=== PATIENT | female | born 1970 | race Caucasian/White ===

== ENCOUNTER 2016-12-31 05:12 | Inpatient (IN) | payer MEDICAID, MEDICARE ==
[2016-12-31] VITALS (8 sets, daily range): BP systolic 105–125; BP diastolic 57–102; PULSE 74–110; RESP 16–22; TEMP 97.9–98.3; O2SAT 94–99
[~2016-12-31] VITALS: Ht 165.1 cm; Wt 74.0 kg
[2016-12-31] MEDS ORDERED: XANA2TAB2 PO (05:24)
[2016-12-31] MEDS ORDERED: VENL75TA PO (05:24)
[2016-12-31] MEDS ORDERED: OXYC15TA PO (05:24)
[2016-12-31] MEDS ORDERED: ONDANSETRON HCL 4 MG/2 ML VIAL IV ONE (05:45)
[2016-12-31] MEDS ORDERED: SODIUM CHLOR 0.9% 1000 ML INJ 1,000 ML IV ONE ×2 (05:45→07:45)
[2016-12-31 06:04] LABS: AUTOMATED NEUTROPHIL # 14.2 TH/MM3 (1.8-7.7); BASOPHIL % 0.1 % (0.0-2.0); HEMATOCRIT 35.4 % (35.0-46.0); HEMO FLAGS DIFF FINAL; LYMPH % 9.8 % (9.0-44.0); LYMPHOCYTE # 1.7 TH/MM3 (1.0-4.8); MEAN CELL VOLUME 87.7 FL (80.0-100.0); MEAN CORPUSCULAR HEMOGLOBIN 29.7 PG (27.0-34.0); MEAN CORPUSCULAR HGB CONC 33.8 % (32.0-36.0); MONO % 7.3 % (0.0-8.0); NEUT % 82.8 % (16.0-70.0); PLATELET COUNT 438 TH/MM3 (150-450); RED BLOOD COUNT 4.03 MIL/MM3 (4.00-5.30); RED CELL DISTRIBUTION WIDTH 14.3 % (11.6-17.2); WHITE BLOOD COUNT 17.1 TH/MM3 (4.0-11.0)
[2016-12-31] MEDS ORDERED: BENZTROPINE MESYLATE 2 MG/2 ML VIAL IV PUSH ONE ×2 (06:15→08:30)
[2016-12-31 06:23] LABS: ANION GAP 14 MEQ/L (5-15)
[2016-12-31 06:39] LABS: ACETAMINOPHEN LESS THAN 2.0 MCG/ML (10.0-30.0); ALKALINE PHOSPHATASE 86 U/L (45-117); ALT (GPT) 42 U/L (10-53); AST (GOT) 58 U/L (15-37); BICARBONATE 24.8 MEQ/L (21.0-32.0); BLOOD UREA NITROGEN 25 MG/DL (7-18); CHLORIDE 94 MEQ/L (98-107); CREATINE KINASE 1257 U/L (26-192); GLOMERULAR FILTRATION RATE 57 ML/MIN (>89); POTASSIUM 3.8 MEQ/L (3.5-5.1); SODIUM (NA) 133 MEQ/L (136-145); TOTAL BILIRUBIN ADULT 0.5 MG/DL (0.2-1.0)
[2016-12-31 06:55] LABS: CKMB 38.7 NG/ML (0.5-3.6)
[2016-12-31] MEDS ORDERED: LORazepam 2 MG/ML VIAL IV PUSH ONE ×2 (07:00→08:30)
[2016-12-31] MEDS ORDERED: LORazepam 2 MG/ML VIAL ONE (07:00)
--- NOTE | 2016-12-31 07:23 | RADRPT ---
EXAM DATE/TIME: 12/31/2016 07:14 [facility] COMPARISON: No previous studies available for comparison. INDICATIONS : Shortness of breath. MEDICAL HISTORY : None. SURGICAL HISTORY : None. ENCOUNTER: Initial ACUITY: 1 day PAIN SCORE: 0/10 LOCATION: Bilateral chest FINDINGS: A single view of the chest demonstrates hyperinflation which can be seen with COPD. There is peribron chial thickening. No infiltrates are seen. Heart is normal in size. The mediastinal contours are unr emarkable. Osseous structures are intact. CONCLUSION: Hyperinflation with peribronchial thickening. No evidence for an infiltrate. Momo Hays MD on December 31, 2016 at 7:21 Board Certified Radiologist. This report was verified electronically.
--- NOTE | 2016-12-31 07:29 | PD ---
HPI Chief Complaint: GI Complaint Time Seen by Provider: 05:22 Travel History International Travel<30 days: No Contact w/Intl Traveler<30days: No Traveled to known affect area: No History of Present Illness HPI The patient is a 46 year old female who presents to the [facility] emergency department with a history of anxiety, dystonia, vomiting related to anxiety that presents to [facility] emergency Department with a history of reportedly having worsening dystonic symptoms of all of her extremities with myalgias for the last 2 days. The patient was seen in the emergency department at another facility and was treated with Ativan and her symptoms seemed to improve, however when she went home she continued to have nausea and vomiting was unable to keep down any of her usual medications, therefore the symptoms recur. She reports that she is followed by Dr. Bui related to the dystonic symptoms. She reports that she is prescribed Xanax, Cogentin, and oxycodone to be taken as needed for this. She reports that she does have Zofran that she has at home to be taken when necessary nausea and vomiting, however it has not been helping. The patient reports that she has been experiencing shortness of breath although she attributes this to her anxiety. She denies having any chest pain other than reported muscle pains related to constantly moving with her dystonic movements. Patient denies any recent fevers, cough, congestion, neck pain, chest pain, shortness of breath, abdominal pain, vomiting, diarrhea, urinary symptoms, or neurologic symptoms. PFSH Past Medical History Narrative Medical The patient's past medical history is significant for bipolar disorder, history of dystonia, history of chronic back pain, history of intermittent nausea and vomiting Bipolar Disorder: Yes Anxiety: Yes Neurologic: Yes ?: Not Past Surgical History Narrative Surgical The patient's past surgical history is significant for a times one. Appendectomy: Yes Section: Yes Hysterectomy: Yes Social History Alcohol Use: No Tobacco Use: Yes Substance Use: No Allergies-Medications (Allergen,Severity, Reaction): Coded Allergies: No Known Allergies (Unverified , 11/08/16) Reported Meds & Prescriptions Reported Meds & Active Scripts Active Reported Oxycodone (Oxycodone HCl) 15 Mg Tab 15 Mg PO Q6H PRN Xanax (Alprazolam) 2 Mg Tab 2 Mg PO TID PRN Effexor (Venlafaxine HCl) 75 Mg Tab 75 Mg PO DAILY Review of Systems Except as stated in HPI: all other systems reviewed are Neg General / Constitutional: No: Fever Eyes: No: Visual changes HENT: No: Headaches Cardiovascular: Positive: Chest Pain or Discomfort (chest wall pain), Dyspnea on exertion Respiratory: Positive: Shortness of Breath, No: Cough Gastrointestinal: Positive: Nausea, Vomiting, No: Diarrhea, Abdominal Pain, Changes in Bowel Habits, Indigestion, Loss of Appetite Genitourinary: No: Dysuria Musculoskeletal: Positive: Myalgias, Pain Skin: No Rash Neurologic: No: Weakness, Focal Abnormalities, Change in Mentation, Slurred Speech, Sensory Disturbance Psychiatric: No: Depression Endocrine: No: Polydipsia Hematologic/Lymphatic: No: Easy Bruising Physical Exam Narrative General: The patient is a well-developed well-nourished female, uncomfortable appearing on initial evaluation, with uncontrollable choreiform movements of her extremities. Head and Neck exam: Head is normocephalic atraumatic. Eyes: Pupils are equal round and reactive to light. Nose: Midline septum with pink mucous membranes Mouth: Dentition unremarkable. Moist mucus membranes. Posterior oropharynx is not erythematous. No tonsillar hypertrophy. Uvula midline. Airway patent. Neck: No palpable lymphadenopathy. No nuchal rigidity. No thyromegaly. Cardiovascular: Sinus tachycardia in the low 100 without murmurs, gallops, or rubs. No pulse deficit to the extremities on simultaneous auscultation and palpation of her radial artery. Lungs: Clear to auscultation bilaterally. No wheezes, rhonchi, or rales. Abdomen: Soft, without tenderness to palpation in all 4 quadrants of the abdomen. No guarding, rebound, or rigidity. Normal bowel sounds are audible. Extremities: No clubbing, cyanosis, or edema. 2+ pulses in all 4 extremities. No calf tenderness on palpation. Back: No spinous process tenderness to palpation. No costovertebral angle tenderness to palpation. Neurologic Exam: Cranial nerves 2-12 were intact on exam. Strength is 5/5 in all 4 extremities. No sensory deficits noted. The patient has chronic intermittent choreiform movements of her extremities. Skin Exam: No rash noted. Intact skin that is warm and dry. Data Data Last Documented VS Vital Signs Date Time Temp Pulse Resp B/P Pulse Ox O2 Delivery O2 Flow Rate FiO2 12/31/16 06:07 99 12/31/16 05:15 97.9 110 22 119/79 Orders Complete Blood Count With Diff (12/31/16 05:42) Comprehensive Metabolic Panel (12/31/16 05:42) Lipase (12/31/16 05:42) Urinalysis - C+S If Indicated (12/31/16 05:42) Magnesium (Mg) (12/31/16 05:42) Thyroid Stimulating Hormone (12/31/16 05:42) Chest, Single Ap (12/31/16 05:42) Iv Access Insert/Monitor (12/31/16 05:42) Ecg Monitoring (12/31/16 05:42) Oximetry (12/31/16 05:42) Drug Screen, Random Urine (12/31/16 05:42) Alcohol (Ethanol) (12/31/16 05:42) Salicylates (Aspirin) (12/31/16 05:42) Tylenol (Acetaminophen) (12/31/16 05:42) Electrocardiogram (12/31/16 05:42) Ckmb (Isoenzyme) Profile (12/31/16 05:42) Troponin I (12/31/16 05:42) B-Type Natriuretic Peptide (12/31/16 05:42) D-Dimer (12/31/16 05:42) Sodium Chlor 0.9% 1000 Ml Inj (Ns 1000 M (12/31/16 05:45) Ondansetron Inj (Zofran Inj) (12/31/16 05:45) Benztropine Inj (Cogentin Inj) (12/31/16 06:15) CKMB (12/31/16 05:50) CKMB% (12/31/16 05:50) Lorazepam Inj (Ativan Inj) (12/31/16 07:00) Lorazepam Inj (Ativan Inj) (12/31/16 07:00) Sodium Chlor 0.9% 1000 Ml Inj (Ns 1000 M (12/31/16 07:45) Nitroglycerin Sl (Nitrostat Sl) (12/31/16 07:45) Nitroglycerin 2% Oint (Nitroglycerin 2% (12/31/16 07:45) Aspirin Chew (Aspirin Chew) (12/31/16 07:45) Labs Laboratory Tests Test 12/31/16 05:50 White Blood Count 17.1 TH/MM3 Red Blood Count 4.03 MIL/MM3 Hemoglobin 12.0 GM/DL Hematocrit 35.4 % Mean Corpuscular Volume 87.7 FL Mean Corpuscular Hemoglobin 29.7 PG Mean Corpuscular Hemoglobin 33.8 % Concent Red Cell Distribution Width 14.3 % Platelet Count 438 TH/MM3 Mean Platelet Volume 9.5 FL Neutrophils (%) (Auto) 82.8 % Lymphocytes (%) (Auto) 9.8 % Monocytes (%) (Auto) 7.3 % Eosinophils (%) (Auto) 0.0 % Basophils (%) (Auto) 0.1 % Neutrophils # (Auto) 14.2 TH/MM3 Lymphocytes # (Auto) 1.7 TH/MM3 Monocytes # (Auto) 1.2 TH/MM3 Eosinophils # (Auto) 0.0 TH/MM3 Basophils # (Auto) 0.0 TH/MM3 CBC Comment DIFF FINAL Differential Comment D-Dimer Quantitative (PE/DVT) 0.27 MG/L FEU Sodium Level 133 MEQ/L Potassium Level 3.8 MEQ/L Chloride Level 94 MEQ/L Carbon Dioxide Level 24.8 MEQ/L Anion Gap 14 MEQ/L Blood Urea Nitrogen 25 MG/DL Creatinine 1.03 MG/DL Estimat Glomerular Filtration 57 ML/MIN Rate Random Glucose 83 MG/DL Calcium Level 8.9 MG/DL Magnesium Level 2.0 MG/DL Total Bilirubin 0.5 MG/DL Aspartate Amino Transf 58 U/L (AST/SGOT) Alanine Aminotransferase 42 U/L (ALT/SGPT) Alkaline Phosphatase 86 U/L Total Creatine Kinase 1257 U/L Creatine Kinase MB 38.7 NG/ML Creatine Kinase MB % 3.1 % Troponin I 0.14 NG/ML B-Type Natriuretic Peptide 310 PG/ML Total Protein 7.3 GM/DL Albumin 3.9 GM/DL Lipase 38 U/L Thyroid Stimulating Hormone 0.255 uIU/ML 3rd Gen Salicylates Level 10.6 MG/DL Acetaminophen Level LESS THAN 2.0 MCG/ML Ethyl Alcohol Level LESS THAN 3 MG/DL MDM Medical Decision Making Medical Screen Exam Complete: Yes Emergency Medical Condition: Yes Medical Record Reviewed: Yes Interpretation(s) Laboratory Tests Test 12/31/16 05:50 White Blood Count 17.1 TH/MM3 (4.0-11.0) Neutrophils (%) (Auto) 82.8 % (16.0-70.0) Neutrophils # (Auto) 14.2 TH/MM3 (1.8-7.7) Monocytes # (Auto) 1.2 TH/MM3 (0-0.9) Sodium Level 133 MEQ/L (136-145) Chloride Level 94 MEQ/L (98-107) Blood Urea Nitrogen 25 MG/DL (7-18) Creatinine 1.03 MG/DL (0.50-1.00) Estimat Glomerular Filtration 57 ML/MIN (>89) Rate Aspartate Amino Transf 58 U/L (15-37) (AST/SGOT) Total Creatine Kinase 1257 U/L (26-192) Creatine Kinase MB 38.7 NG/ML (0.5-3.6) Troponin I 0.14 NG/ML (0.02-0.05) B-Type Natriuretic Peptide 310 PG/ML (0-100) Lipase 38 U/L (73-393) Thyroid Stimulating Hormone 0.255 uIU/ML 3rd Gen (0.358-3.740) Acetaminophen Level LESS THAN 2.0 MCG/ML (10.0-30.0) Last Impressions Chest X-Ray 12/31/16 0542 Signed Impressions: Service Date/Time: Saturday, December 31, 2016 07:14 - CONCLUSION: Hyperinflation with peribronchial thickening. No evidence for an infiltrate. Momo Hays MD Differential Diagnosis Rhabdomyolysis, versus acute coronary syndrome, versus pulmonary embolism, versus pneumonia, versus pneumothorax Narrative Course During the course of the patients emergency department visit, the patients history, examination, and differential diagnosis were reviewed with the patient. The patient had IV access obtained and blood work sent for analysis. 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 The patient was provided normal saline a 1 L IV fluid bolus, Zofran 4 mg IV, Cogentin 1 mg IV. The patient continued to have abnormal movements of her extremities was given Ativan 1 mg IV. She reports that this usually does work well for her. The patients laboratory studies were reviewed and remarkable for a white count of 17.1, hemoglobin 12, platelets 438 with neutrophils 82.8, CMP is remarkable for sodium of 133, chloride 94, BUN 25, creatinine 1.03, AST 58, CPK 1257, MB percent 3.1, troponin I 0.14 which I suspect may be related to the patient's renal insufficiency, lipase 38, TSH 0.255, follow-up free T3-T4 will be ordered by the inpatient team. D-dimer is 0.27 decreased the likelihood of pulmonary embolism in this patient without any other significant risk factors. Urine drug screen is positive for cannabinoids. Alcohol less than 3, acetaminophen less than 2, salicylate 10.6, urinalysis shows 50 ketones otherwise unremarkable. Radiology studies were reviewed and remarkable for a chest x-ray that shows hyperinflation and peribronchial thickening, no evidence of an infiltrate. The patient was continued on normal saline IV fluids. The patient required an additional milligram of Ativan IV. The patient will be admitted to the hospital for rhabdomyolysis The patients results were discussed with the patient, including the plan of care. I explained that further testing and/ or monitoring is indicated based on the patients history, examination, and/ or laboratory findings. Therefore, I recommended admission for additional evaluation. The patient expressed understanding and was agreeable with this plan. The patient was admitted to the hospital in stable condition and [facility] Sepsis Criteria SIRS Criteria (2 or more): Heart rate over 90, RR > 20 or PaCO2 < 32, WBC > 85512, < 4000 or > 10% bands Physician Communication Physician Communication The patient's case was discussed with Dr. Junior who did agree to admit the patient for further evaluation and treatment at this time. Diagnosis Primary Impression: Rhabdomyolysis Qualified Code: M62.82 - Non-traumatic rhabdomyolysis Additional Impressions: Dehydration Dystonia Anxiety Admitting Information Admitting Physician Requests: it Michell Morton MD Dec 31, 2016 07:29
[2016-12-31] MEDS ORDERED: NITROGLYCERIN 0.4 MG SL 25 TABS/BTL SL ONE (07:45)
[2016-12-31] MEDS ORDERED: ASPIRIN 81 MG CHEW TAB CHEW ONE (07:45)
[2016-12-31] MEDS ORDERED: NITROGLYCERIN 2% OINT 1 GM PACKET TOPICAL ONE (07:45)
[2016-12-31] MEDS: SODIUM CHLOR 0.9% 1000 ML INJ 1,000 ML IV SCH ×3 (08:16→18:16)
[2016-12-31] MEDS ORDERED: ONDANSETRON HCL 4 MG/2 ML VIAL IVP PRN (08:30)
[2016-12-31] MEDS ORDERED: ACETAMINOPHEN 325 MG TAB PO PRN (08:30)
[2016-12-31] MEDS ORDERED: NALOXONE HCL 0.4 MG/ML AMP IV PRN (08:30)
[2016-12-31] MEDS ORDERED: BISACODYL 10 MG SUPP PR PRN (08:30)
[2016-12-31] MEDS ORDERED: MAGNESIUM HYDROXIDE SUSP 30 ML CUP PO PRN (08:30)
[2016-12-31] MEDS ORDERED: SODIUM CHLORIDE 0.9% FLUSH 5 ML FLUSH FLUSH PRN (08:30)
[2016-12-31] MEDS: HEPARIN SODIUM - SQ 10,000 UNITS/ML VIAL SQ SCH ×2 (08:37→21:29)
[2016-12-31 08:45] LABS: BLOOD, URINE NEG (NEG); COMMENT (UR) CULT NOT INDICATED; CULTURE IF INDICATED CULT NOT INDICATED; GLUCOSE,URINE NEG (NEG); HYALINE CAST, URINE 5 /lpf (RARE); KETONE, URINE 40 mg/dL (NEG); MUCUS URINE FEW /lpf (OCC); NITRITE,URINE NEG (NEG); SQUAMOUS EPITHELIAL CELL URINE 1 /hpf (0-5); URINE COLOR YELLOW (YELLW/STRAW)
[2016-12-31] MEDS: SODIUM CHLORIDE 0.9% FLUSH 5 ML FLUSH FLUSH SCH ×2 (09:00→20:55)
[2016-12-31] MEDS ORDERED: PROCHLORPERAZINE INJ 10 MG/2 ML VIAL IVS PRN (09:15)
[2016-12-31] MEDS ORDERED: PILL SPLITTER OTHER PRN (09:15)
--- NOTE | 2016-12-31 09:17 | HHI.HP ---
[facility] No Primary Care Physician Admission Diagnosis Rhabdomyolysis, Dystonic reaction, dehydration Diagnoses: Chief Complaint: Nausea, vomiting, rhabdomyolysis. Travel History International Travel<30 Days: No Contact w/Intl Traveler <30 Da: No Traveled to Known Affected Are: No Sepsis Criteria SIRS Criteria (2 or more): Heart rate over 90, RR > 20 or PaCO2 < 32, WBC > 65728, < 4000 or > 10% bands History of Present Illness Ms. Ervin is a pleasant 46-year-old female with a history of dystonia who presents to the emergency department due to nausea and vomiting that started about 6 days ago. She was evaluated at [facility] 2-3 days ago and was discharged from the emergency department with Ativan. She initially had some improvement of her symptoms but after she went home she started having nausea vomiting and anxiety again. She denies any chest pain, shortness of breath, fever or chills. She does report some chest discomfort when she gets anxious. Denies any changes in bladder or bowel movement habits. Patient reports about 20 pound weight loss in the last 2 months. She attributes this to her dystonia. On arrival blood pressure 119/79, pulse 110, respiration 22, temperature 97.9F , 95% saturation on room air. Lab studies indicate creatinine 1.03 (baseline 0.53 in October 2016), CPK 1257, troponin 0.14, BNP 310, sodium 133 potassium 3.8. WBC 17.1 with neutrophils 82.8%, hemoglobin 12.0. Urinalysis unremarkable. Chest x-ray shows hyperinflation with peribronchial thickening no evidence for an infiltrate. Review of Systems ROS Limitations: Other (negative except as noted in the history of present illness) Past Family Social History Past Medical History Dystonia, pelvic kidney congenital, anxiety, chronic pain syndrome. Past Surgical History Appendectomy, , hysterectomy Reported Medications Oxycodone (Oxycodone HCl) 15 Mg Tab 15 Mg PO Q6H PRN Xanax (Alprazolam) 2 Mg Tab 2 Mg PO TID PRN Effexor (Venlafaxine HCl) 75 Mg Tab 75 Mg PO DAILY Allergies: Coded Allergies: No Known Allergies (Unverified , 11/08/16) Family History Family history significant for hypertension, heart disease. Mother and stepbrother has protein S and factor VIII related genetic mutation. Patient's stepbrother was diagnosed with DVT PE in his early 20s and currently on warfarin. Social History Patient smokes about half a pack to 1 pack a day. Denies drinking alcohol or using illicit drugs. Physical Exam Vital Signs Vital Signs Date Time Temp Pulse Resp B/P Pulse Ox O2 Delivery O2 Flow Rate FiO2 12/31/16 07:49 105 18 125/102 94 Room Air 12/31/16 06:07 99 12/31/16 05:15 97.9 110 22 119/79 95 Physical Exam GENERAL: This is a well-nourished, well-developed patient, in no apparent distress. SKIN: No rashes, ecchymoses or lesions. Warm and dry. HEAD: Atraumatic. Normocephalic. No temporal or scalp tenderness. EYES: Pupils equal round and reactive. No injection or drainage. ENT: Nose without bleeding, purulent drainage or septal hematoma. Airway patent. NECK: Trachea midline. No lymphadenopathy. Supple, nontender, no meningeal signs. CARDIOVASCULAR: Regular rhythm, mildly tachycardic without murmurs, gallops, or rubs. No JVD. RESPIRATORY: Clear to auscultation. Breath sounds equal bilaterally. No wheezes , rales, or rhonchi. GASTROINTESTINAL: Abdomen soft, non-tender, nondistended. No guarding. MUSCULOSKELETAL: Extremities without clubbing, cyanosis, or edema. NEUROLOGICAL: Awake and alert. Cranial nerves II through XII intact. Normal speech. Moving constantly. Laboratory Laboratory Tests Test 12/31/16 12/31/16 05:50 08:25 White Blood Count 17.1 Red Blood Count 4.03 Hemoglobin 12.0 Hematocrit 35.4 Mean Corpuscular Volume 87.7 Mean Corpuscular Hemoglobin 29.7 Mean Corpuscular Hemoglobin 33.8 Concent Red Cell Distribution Width 14.3 Platelet Count 438 Mean Platelet Volume 9.5 Neutrophils (%) (Auto) 82.8 Lymphocytes (%) (Auto) 9.8 Monocytes (%) (Auto) 7.3 Eosinophils (%) (Auto) 0.0 Basophils (%) (Auto) 0.1 Neutrophils # (Auto) 14.2 Lymphocytes # (Auto) 1.7 Monocytes # (Auto) 1.2 Eosinophils # (Auto) 0.0 Basophils # (Auto) 0.0 CBC Comment DIFF FINAL Differential Comment D-Dimer Quantitative (PE/DVT) 0.27 Sodium Level 133 Potassium Level 3.8 Chloride Level 94 Carbon Dioxide Level 24.8 Anion Gap 14 Blood Urea Nitrogen 25 Creatinine 1.03 Estimat Glomerular Filtration 57 Rate Random Glucose 83 Calcium Level 8.9 Magnesium Level 2.0 Total Bilirubin 0.5 Aspartate Amino Transf 58 (AST/SGOT) Alanine Aminotransferase 42 (ALT/SGPT) Alkaline Phosphatase 86 Total Creatine Kinase 1257 Creatine Kinase MB 38.7 Creatine Kinase MB % 3.1 Troponin I 0.14 B-Type Natriuretic Peptide 310 Total Protein 7.3 Albumin 3.9 Lipase 38 Thyroid Stimulating Hormone 0.255 3rd Gen Salicylates Level 10.6 Acetaminophen Level LESS THAN 2.0 Ethyl Alcohol Level LESS THAN 3 Urine Color YELLOW Urine Turbidity CLEAR Urine pH 6.0 Urine Specific [place] 1.019 Urine Protein TRACE Urine Glucose (UA) NEG Urine Ketones 40 Urine Occult Blood NEG Urine Nitrite NEG Urine Bilirubin NEG Urine Urobilinogen LESS THAN 2.0 Urine Leukocyte Esterase NEG Urine RBC LESS THAN 1 Urine WBC 1 Urine Squamous Epithelial 1 Cells Urine Hyaline Casts 5 Urine Mucus FEW Microscopic Urinalysis Comment CULT NOT INDICATED Result Diagram: 12/31/16 0550 12/31/16 0550 Imaging Last Impressions Chest X-Ray 12/31/16 0542 Signed Impressions: Service Date/Time: Saturday, December 31, 2016 07:14 - CONCLUSION: Hyperinflation with peribronchial thickening. No evidence for an infiltrate. Momo Hays MD Assessment and Plan Problem List: (1) Rhabdomyolysis ICD Code: M62.82 Status: Acute (2) Nausea & vomiting ICD Code: R11.2 Status: Acute (3) Dystonia ICD Code: G24.9 Status: Acute (4) Anxiety ICD Code: F41.9 Status: Acute Assessment and Plan Ms. Ervin is a pleasant 46-year-old female with a history of dystonia presents to the emergency Department due to 6 degeneration of nausea and vomiting. She was evaluated by an outside ED 2-3 days ago. Due to persistent symptoms she came to the emergency department today. ED workup indicated leukocytosis without any clear evidence of infection, rhabdomyolysis with CPK total 57, elevation of her creatinine from her baseline. - Nausea and vomiting - Etiology unknown. We'll provide supportive care with fluid, antinausea medication. - Continue Zofran, and Compazine. - Acute rhabdomyolysis - Acute kidney injury - creatinine 1.03. Baseline in October 2016 creatinine was 0.53. EGFR decreased from 124 --> 57. - Continue normal saline at 200 cc per hour. - We'll repeat BMP, CPK in the morning. - Mild elevation of troponin - likely due to acute kidney injury. We'll repeat troponin one more time. No evidence of acute coronary syndrome. - Dystonia - neurologist is Dr. Bui has been following this patient in the outpatient setting. - Per patient's mother (an RN), patient's symptoms have been going on for about a year or so. - We'll start patient on levodopa/carbidopa 25/100 half a tablet every 8 hours. We'll try to as needed. - Leukocytosis - likely reactive. Will monitor. - Anxiety - continue Xanax. - Chronic pain syndrome - continue oxycodone. Full code. Heparin SQ. Discussed with patient's mother. Physician Certification 2 Midnight Certification Type: Admission for Inpatient Services Order for Inpatient Services The services are ordered in accordance with Medicare regulations or non- Medicare payer requirements, as applicable. In the case of services not specified as inpatient-only, they are appropriately provided as inpatient services in accordance with the 2-midnight benchmark. Estimated LOS (days): 2 days is the estimated time the patient will need to remain in the hospital, assuming treatment plan goals are met and no additional complications. Post-Hospital Plan: Home Jeana Junior DO Dec 31, 2016 9:17 am
[2016-12-31] MEDS: CARBIDOPA/LEVODOPA 25 MG/100 MG TAB PO SCH ×3 (09:44→21:29)
[2016-12-31 11:31] LABS: FREE T4 1.72 NG/DL (0.76-1.46)
[2016-12-31 11:56] LABS: CKMB 38.3 NG/ML (0.5-3.6)
[2016-12-31 13:39] LABS: AMPHETAMINE, URINE NEG (NEG); BARBITURATES, URINE NEG (NEG); COCAINE, URINE NEG (NEG)
[2016-12-31 15:41] LABS: FREE T3 2.05 PG/ML (2.18-3.98)
[2016-12-31 16:02] LABS: CKMB 31.8 NG/ML (0.5-3.6)
[2016-12-31] MEDS: ALPRAZolam 1 MG TAB PO PRN (17:07)
[2017-01-01] VITALS (12 sets, daily range): BP systolic 120–141; BP diastolic 60–83; PULSE 70–93; RESP 15–17; TEMP 97.2–98.3; O2SAT 95–97
[2017-01-01] MEDS: SODIUM CHLOR 0.9% 1000 ML INJ 1,000 ML IV SCH ×5 (01:59→21:34)
[2017-01-01] MEDS: ALPRAZolam 1 MG TAB PO PRN ×2 (02:33→09:39)
[2017-01-01 04:08] LABS: AUTOMATED NEUTROPHIL # 4.7 TH/MM3 (1.8-7.7); BASOPHIL % 0.3 % (0.0-2.0); EOSINOPHIL # 0.1 TH/MM3 (0-0.4); EOSINOPHIL % 0.6 % (0.0-4.0); HEMATOCRIT 28.4 % (35.0-46.0); HEMO FLAGS DIFF FINAL; LYMPH % 41.3 % (9.0-44.0); MEAN CELL VOLUME 89.1 FL (80.0-100.0); MEAN CORPUSCULAR HEMOGLOBIN 30.3 PG (27.0-34.0); MONO % 8.8 % (0.0-8.0); PLATELET COUNT 299 TH/MM3 (150-450); RED BLOOD COUNT 3.19 MIL/MM3 (4.00-5.30); RED CELL DISTRIBUTION WIDTH 14.4 % (11.6-17.2); WHITE BLOOD COUNT 9.7 TH/MM3 (4.0-11.0)
[2017-01-01 04:15] LABS: BICARBONATE 23.4 MEQ/L (21.0-32.0); POTASSIUM 3.2 MEQ/L (3.5-5.1)
[2017-01-01 04:36] LABS: CKMB 15.5 NG/ML (0.5-3.6)
[2017-01-01] MEDS: CARBIDOPA/LEVODOPA 25 MG/100 MG TAB PO SCH ×3 (05:33→21:33)
[2017-01-01] MEDS ORDERED: POTASSIUM CHLORIDE 20 MEQ CONTROLLED RELEASE TAB PO ONE (07:15)
--- NOTE | 2017-01-01 08:20 | EKG ---
Date Performed: 12/31/2016 Time Performed: 09:18:58 PTAGE: 46 years EKG: Sinus rhythm NONSPECIFIC T-WAVE ABNORMALITY Compared to previous tracing, very difficult to compare the prior tra cing due to signficant baseline artifact. Clinical correlation is recommended. BORDERLINE ECG PREVIOUS TRACING : 12/31/2016 07.59 DOCTOR: Ant Delcid Interpretating Date/Time 01/02/2017 06:57:13
[2017-01-01] MEDS: SODIUM CHLORIDE 0.9% FLUSH 5 ML FLUSH FLUSH SCH ×2 (08:35→21:00)
[2017-01-01] MEDS: HEPARIN SODIUM - SQ 10,000 UNITS/ML VIAL SQ SCH ×2 (08:35→21:33)
[2017-01-01] MEDS: ALPRAZolam 1 MG TAB PO SCH ×2 (14:43→23:47)
[2017-01-01] MEDS ORDERED: ALPRAZolam 1 MG TAB PO PRN (15:00)
--- NOTE | 2017-01-01 15:00 | RADRPT ---
EXAM DATE/TIME: 01/01/2017 14:27 [facility] COMPARISON: No previous studies available for comparison. INDICATIONS : Pain and distention. MEDICAL HISTORY : Rhabdomyolysis SURGICAL HISTORY : None. ENCOUNTER: Initial ACUITY: 1 day PAIN SCORE: 0/10 LOCATION: Bilateral abdomen FINDINGS: A single AP supine portable view of the abdomen was obtained and demonstrates gas and stool noted seg mentally in the colon. There is no evidence of free air or mass effect on this single view supine exa m. The bony structures are intact. There are surgical clips in the right side of the pelvis. CONCLUSION: Nonobstructive bowel gas pattern. Florin Henderson MD on January 01, 2017 at 14:58 Board Certified Radiologist. This report was verified electronically.
[2017-01-02] VITALS: BP 131/62; PULSE 75; RESP 18; TEMP 98.3; O2SAT 97
[2017-01-02 04:00] VITALS: BP 128/75; PULSE 80; RESP 18; TEMP 98; O2SAT 95
[2017-01-02] MEDS: CARBIDOPA/LEVODOPA 25 MG/100 MG TAB PO SCH ×3 (05:17→23:54)
[2017-01-02] MEDS: SODIUM CHLOR 0.9% 1000 ML INJ 1,000 ML IV SCH ×3 (05:37→17:54)
[2017-01-02 07:00] VITALS: BP 125/79; PULSE 98; RESP 16; TEMP 97.9; O2SAT 97
[2017-01-02] MEDS: ALPRAZolam 1 MG TAB PO SCH ×4 (07:12→19:28)
[2017-01-02 07:17] LABS: CKMB 5.6 NG/ML (0.5-3.6)
[2017-01-02] MEDS: SODIUM CHLORIDE 0.9% FLUSH 5 ML FLUSH FLUSH SCH ×2 (07:18→21:00)
[2017-01-02] MEDS: HEPARIN SODIUM - SQ 10,000 UNITS/ML VIAL SQ SCH ×2 (08:07→23:53)
[2017-01-02 11:00] VITALS: BP 127/85; PULSE 61; RESP 16; TEMP 97.4; O2SAT 96
--- NOTE | 2017-01-02 14:37 | HHI.PR ---
Subjective Remarks Denies any chest pain, however having generalized aches, no nausea or vomiting. He*nasal stable at baseline. Patient is generalized weakness. Objective Vitals Vital Signs Date Time Temp Pulse Resp B/P Pulse Ox O2 Delivery O2 Flow Rate FiO2 01/02/17 11:00 97.4 61 16 127/85 96 01/02/17 07:00 97.9 98 16 125/79 97 01/02/17 04:00 98.0 80 18 128/75 95 01/02/17 00:00 98.3 75 18 131/62 97 01/01/17 20:00 98.3 70 16 126/65 97 01/01/17 15:50 98.1 72 15 120/64 95 I/O 01/01/17 01/01/17 01/01/17 01/02/17 01/02/17 01/02/17 07:00 15:00 23:00 07:00 15:00 23:00 Intake Total 1320 ml 2440 ml Output Total 500 ml Balance 1320 ml 1940 ml Intake Oral 720 ml 640 ml IV Total 600 ml 1800 ml Output Urine Total 500 ml # Voids 1 # Bowel Movements 0 0 Result Diagram: 01/01/17 03401/01/17 0341 Objective Remarks GENERAL: This is a well-nourished, well-developed patient, in no apparent distress. NECK: Trachea midline. No lymphadenopathy. Supple, nontender, no meningeal signs. CARDIOVASCULAR: Regular rhythm, mildly tachycardic without murmurs, gallops, or rubs. No JVD. RESPIRATORY: Clear to auscultation. Breath sounds equal bilaterally. No wheezes , rales, or rhonchi. GASTROINTESTINAL: Abdomen soft, non-tender, nondistended. No guarding. MUSCULOSKELETAL: Extremities without clubbing, cyanosis, or edema. NEUROLOGICAL: Awake and alert. Cranial nerves II through XII intact. Normal speech. Moving constantly, dystonias at baseline. A/P Problem List: (1) Rhabdomyolysis ICD Code: M62.82 Status: Acute (2) Nausea & vomiting ICD Code: R11.2 Status: Acute (3) Dystonia ICD Code: G24.9 Status: Acute (4) Anxiety ICD Code: F41.9 Status: Acute Assessment and Plan Ms. Ervin is a pleasant 46-year-old female with a history of dystonia presents to the emergency Department due to 6 degeneration of nausea and vomiting. She was evaluated by an outside ED 2-3 days ago. Due to persistent symptoms she came to the emergency department today. ED workup indicated leukocytosis without any clear evidence of infection, rhabdomyolysis with CPK total 57, elevation of her creatinine from her baseline. - Nausea and vomiting - Etiology unknown. Improving, supportive management, Continue Zofran, and Compazine. - Acute rhabdomyolysis - Acute kidney injury - creatinine 1.03. Baseline in October 2016 creatinine was 0.53. EGFR decreased from 124 --> 57. Resolving, continue IVF. - Mild elevation of troponin - likely due to acute kidney injury. Troponin likely demand mediated, awaiting cardiology input. - Dystonia - neurologist is Dr. Bui has been following this patient in the outpatient setting. - Per patient's mother (an RN), patient's symptoms have been going on for about a year or so. - We'll start patient on levodopa/carbidopa 25/100 half a tablet every 8 hours. We'll try to as needed. Consult physical therapy, might need home health care. - Leukocytosis - likely reactive. Will monitor. - Anxiety - continue Xanax. - Chronic pain syndrome - continue oxycodone. Full code. Heparin SQ. Problem Qualifiers (1) Rhabdomyolysis: Qualified Code: M62.82 - Non-traumatic rhabdomyolysis Genesis Frost MD Jan 02, 2017 14:37
[2017-01-02 16:00] VITALS: BP 141/78; RESP 16; TEMP 97.8; O2SAT 97
[2017-01-02] MEDS ORDERED: POTASSIUM CHLORIDE 20 MEQ CONTROLLED RELEASE TAB PO ONE (17:45)
[2017-01-02 20:00] VITALS: BP 153/108; PULSE 89; RESP 18; TEMP 98; O2SAT 97
[2017-01-02] MEDS ORDERED: AMITRIPTYLINE HCL 25 MG TAB PO PRN (21:00)
[2017-01-03] VITALS: BP 151/92; PULSE 85; RESP 18; TEMP 98; O2SAT 95
[2017-01-03] MEDS: ALPRAZolam 1 MG TAB PO SCH ×3 (01:51→14:00)
[2017-01-03 04:00] VITALS: BP 138/75; PULSE 80; RESP 18; TEMP 98; O2SAT 95
[2017-01-03] MEDS: SODIUM CHLOR 0.9% 1000 ML INJ 1,000 ML IV SCH ×2 (04:43→08:17)
[2017-01-03] MEDS: CARBIDOPA/LEVODOPA 25 MG/100 MG TAB PO SCH ×2 (06:00→13:54)
[2017-01-03 08:15] VITALS: BP 151/81; RESP 18; TEMP 97.6; O2SAT 98
[2017-01-03] MEDS: HEPARIN SODIUM - SQ 10,000 UNITS/ML VIAL SQ SCH (08:21)
[2017-01-03] MEDS: SODIUM CHLORIDE 0.9% FLUSH 5 ML FLUSH FLUSH SCH (08:21)
[2017-01-03 11:00] VITALS: BP 155/87; RESP 18; TEMP 97.8; O2SAT 99
--- NOTE | 2017-01-03 11:23 | HHI.FF ---
Face to Face Verification Diagnosis: (1) Dehydration (2) Rhabdomyolysis (3) Dystonia Physical Therapy Order: Evaluate and Treat Occupational Therapy Order: Evaluate and Treat I have seen patient Rosa Ervin on 01/03/17. My clinical findings support the need for the requested home health care services because: Ltd mobility - disease progression Limited ability to care for self I certify that my clinical findings support that this patient is homebound because: Unsteady gait/balance Genesis Frost MD Jan 03, 2017 11:23
--- NOTE | 2017-01-03 11:25 | HHI.DS ---
Discharge Summary Admission Date Dec 31, 2016 at 09:01 Discharge Date: Jan 03, 2017 Admitting Diagnosis Rhabdomyolysis, Dystonic reaction, dehydration (1) Rhabdomyolysis ICD Code: M62.82 Diagnosis: Principal (2) Nausea & vomiting ICD Code: R11.2 Diagnosis: Principal (3) Dystonia ICD Code: G24.9 Diagnosis: Secondary (4) Anxiety ICD Code: F41.9 Diagnosis: Secondary Procedures None Brief History - From Admission Ms. Ervin is a pleasant 46-year-old female with a history of dystonia who presents to the emergency department due to nausea and vomiting that started about 6 days ago. She was evaluated at [facility] 2-3 days ago and was discharged from the emergency department with Ativan. She initially had some improvement of her symptoms but after she went home she started having nausea vomiting and anxiety again. She denies any chest pain, shortness of breath, fever or chills. She does report some chest discomfort when she gets anxious. Denies any changes in bladder or bowel movement habits. Patient reports about 20 pound weight loss in the last 2 months. She attributes this to her dystonia. On arrival blood pressure 119/79, pulse 110, respiration 22, temperature 97.9F , 95% saturation on room air. Lab studies indicate creatinine 1.03 (baseline 0.53 in October 2016), CPK 1257, troponin 0.14, BNP 310, sodium 133 potassium 3.8. WBC 17.1 with neutrophils 82.8%, hemoglobin 12.0. Urinalysis unremarkable. Chest x-ray shows hyperinflation with peribronchial thickening no evidence for an infiltrate. CBC/BMP: 01/01/17 0341 01/01/17 0341 Significant Findings Laboratory Tests Test 12/31/16 01/01/17 01/02/17 14:23 03:41 06:02 Total Creatine Kinase 1121 U/L 675 U/L 258 U/L (26-192) (26-192) (26-192) Creatine Kinase MB 31.8 NG/ML 15.5 NG/ML 5.6 NG/ML (0.5-3.6) (0.5-3.6) (0.5-3.6) Free Triiodothyronine (T3) 2.05 PG/ML pg/dL (2.18-3.98) Red Blood Count 3.19 MIL/MM3 (4.00-5.30) Hemoglobin 9.7 GM/DL (11.6-15.3) Hematocrit 28.4 % (35.0-46.0) Monocytes (%) (Auto) 8.8 % (0.0-8.0) Potassium Level 3.2 MEQ/L (3.5-5.1) Chloride Level 109 MEQ/L (98-107) Calcium Level 7.7 MG/DL (8.5-10.1) PE at Discharge GENERAL: This is a well-nourished, well-developed patient, in no apparent distress. NECK: Trachea midline. No lymphadenopathy. Supple, nontender, no meningeal signs. CARDIOVASCULAR: Regular rhythm, mildly tachycardic without murmurs, gallops, or rubs. No JVD. RESPIRATORY: Clear to auscultation. Breath sounds equal bilaterally. No wheezes , rales, or rhonchi. GASTROINTESTINAL: Abdomen soft, non-tender, nondistended. No guarding. MUSCULOSKELETAL: Extremities without clubbing, cyanosis, or edema. NEUROLOGICAL: Awake and alert. Cranial nerves II through XII intact. Normal speech. Moving constantly, dystonias at baseline. Pt update on day of discharge No n/v. pain controlled, No sob, agreed for dc with [facility] [place]. Hospital Course Ms. Ervin is a pleasant 46-year-old female with a history of dystonia presents to the emergency Department due to 6 degeneration of nausea and vomiting. ED workup indicated leukocytosis without any clear evidence of infection, rhabdomyolysis with CPK total 57, elevation of her creatinine from her baseline. Patient was given intravenous fluid resuscitation with normal saline. Nausea and vomiting were treated symptomatically with Zofran. Patient was found to be in rhabdomyolysis which improved with volume resuscitation. After 2 days, patient had improvement with creatinine. She was evaluated by physical therapy. She has mild troponin elevation which was thought to be secondary to demand mediated per cardiology. Patient will be discharged with home health care physical therapy and nursing to follow-up with primary care physician in one week Pt Condition on Discharge: Good Discharge Disposition: Disch w/ Home Health Serv Discharge Time: > 30 minutes Discharge Instructions DIET: Follow Instructions for: Heart Healthy Diet Activities you can perform: Regular-No Restrictions Follow up Referrals: PCP Follow-up - 1 Week Continued Medications: Alprazolam (Xanax) 2 Mg Tab 2 MG PO TID PRN ANXIETY Ref 0 TAB Oxycodone (Oxycodone) 15 Mg Tab 15 MG PO Q6H PRN PAIN Ref 0 TAB Venlafaxine (Effexor) 75 Mg Tab 75 MG PO DAILY #30 Ref 0 TAB Genesis Frost MD Jan 03, 2017 11:25 Discharge Disposition: Disch w/ Home Health Serv Discharge Time: > 30 minutes Discharge Instructions DIET: Follow Instructions for: Heart Healthy Diet Activities you can perform: Regular-No Restrictions Follow up Referrals: PCP Follow-up - 1 Week Continued Medications: Alprazolam (Xanax) 2 Mg Tab 2 MG PO TID PRN ANXIETY Ref 0 TAB Oxycodone (Oxycodone) 15 Mg Tab 15 MG PO Q6H PRN PAIN Ref 0 TAB Venlafaxine (Effexor) 75 Mg Tab 75 MG PO DAILY #30 Ref 0 TAB Genesis Frost MD Jan 03, 2017 11:25
[2017-01-03] MEDS ORDERED: LEVO125T4 PO (11:26)
--- NOTE | 2017-01-03 13:41 | HHI.FF ---
Face to Face Verification Diagnosis: (1) Rhabdomyolysis (2) Dystonia (3) Dehydration Physical Therapy Order: Evaluate and Treat Home Health Nursing Order: Medical education Nursing assessment with vital signs I have seen patient Rosa Ervin on 01/03/17. My clinical findings support the need for the requested home health care services because: Deconditioned w/ increased weakness Limited ability to care for self I certify that my clinical findings support that this patient is homebound because: Unsteady gait/balance Genesis Frost MD Jan 03, 2017 13:41
== END 2017-01-03 15:00 | disposition home health service (06) | DRG 558 ==
LOC: NEPE 05:12 → NEDA 07:35 → OBSVTOIN 09:01 → NEDH 19:49 → HCPC 01-01 08:57
PROVIDERS: ADMIT Hospitalist; ATTEND Hospitalist
DX: M62.82 Rhabdomyolysis (principal); N17.9 Acute kidney failure, unspecified; E86.0 Dehydration; F41.9 Anxiety disorder, unspecified; G24.9 Dystonia, unspecified; M54.9 Dorsalgia, unspecified; F17.210 Nicotine dependence, cigarettes, uncomplicated; G89.4 Chronic pain syndrome; Z82.49 Family history of ischemic heart disease and other diseases of the circulatory system; Z83.2 Family history of diseases of the blood and blood-forming organs and certain disorders involving the immune mechanism; R11.2 Nausea with vomiting, unspecified; R74.8 Abnormal levels of other serum enzymes; D72.829 Elevated white blood cell count, unspecified
CPT/HCPCS: 71010; 74000; 76937; 80048; 80053; 80307; 80320; 80329; 81001; 82550; 82552; 83690; 83735; 83880; 84439; 84443; 84481; 84484; 85025; 85379; 93005; 96374; 96375; G0480; J0515; J1644; J2060; J2405; J7030

== ENCOUNTER 2018-11-02 09:57 | Inpatient (IN) ==
--- NOTE | 2018-11-02 10:39 | ED ---
HPI General Chief complaint: Psychiatric Symptoms Stated complaint: Fall Time Seen by Provider: 11/02/18 12:25 Source: patient and family Mode of arrival: ambulatory Limitations: no limitations History of Present Illness HPI narrative: 48yo F with borderline personality, bipolar, substance abuse, dystonia was brought in by her mother and stepfather for evaluation of worsening paranoia. Pt lives at a facility and this morning left the facility on her own and this is new. She did fall and hit her head 2 days ago. She was evaluated here and had CT brain, CT cervical spine completed and sutures repaired. Denies any fever, chest pain, sob, n/v, abdominal pain, focal weakness or numbness. Related Data Home Medications Medication Instructions Recorded Confirmed Citroma 11/02/18 11/02/18 Dulcolax Stool Softener (dss) 11/02/18 Paxil 11/02/18 11/02/18 baclofen 20 mg PO QID 11/02/18 11/02/18 baclofen 20 mg PO QID 11/02/18 11/02/18 carbidopa-levodopa [Sinemet CR] 1 tab PO Q8H 11/02/18 11/02/18 famotidine [Pepcid] 20 mg PO DAILY 11/02/18 11/02/18 gabapentin See Label Instructions .ROUTE 11/02/18 11/02/18 .COMPLEX lorazepam [Ativan] 2 11/02/18 magnesium hydroxide [Milk of 15 ml PO DAILY PRN 11/02/18 11/02/18 Magnesia] melatonin 11/02/18 oxycodone [OxyContin] 11/02/18 11/02/18 tizanidine 2 mg PO TID PRN 11/02/18 11/02/18 trazodone 11/02/18 Allergies Allergy/AdvReac Type Severity Reaction Status Date / Time diclofenac AdvReac Ulcers Verified 11/02/18 10:44 etodolac AdvReac Ulcers Verified 11/02/18 10:44 flurbiprofen AdvReac Ulcers Verified 11/02/18 10:44 ibuprofen AdvReac Ulcers Verified 11/02/18 10:44 indomethacin AdvReac Ulcers Verified 11/02/18 10:44 Review of Systems ROS: all other systems reviewed are negative PMFSH Medical History Medical History Anxiety (Acute) Bipolar II disorder (Acute) Delusional disorder (Acute) Dystonia (Acute) GERD (gastroesophageal reflux disease) (Acute) Hypertension (Acute) Insomnia (Acute) Parkinson disease (Acute) Polyneuropathy (Acute) Rhabdomyolysis (Acute) Vitamin deficiency (Acute) Social History Social History Substance History: Unable to Obtain Second Hand Smoke Exposure: Yes Smoking Status: Refused to answer Tobacco Type: Cigarettes How Often Do You Have a Drink Containing Alcohol: Unable to Obtain Recent Travel in [facility] within the Last 8 Weeks: No Recent Out of Country Travel within the Last 8 Weeks: No Exam Narrative Exam Narrative: GENERAL: 48yo F not in distress. SKIN: Focused skin assessment warm/dry. HEAD: +Left forehead sutures in place. EYES: Pupils equal and round at 5mm bilaterally. EOMI. ENT: No nasal bleeding or discharge. Mucous membranes pink and moist. NECK: Trachea midline. No JVD. CARDIOVASCULAR: Regular rate and rhythm. No murmur appreciated. RESPIRATORY: No accessory muscle use. Clear to auscultation. Breath sounds equal bilaterally. GASTROINTESTINAL: Abdomen soft, non-tender, nondistended. MUSCULOSKELETAL: No obvious deformities. No clubbing. No cyanosis. No edema. NEUROLOGICAL: Awake and alert. No obvious cranial nerve deficits. Motor grossly within normal limits. Normal speech. PSYCHIATRIC: Dystonia to right. Paranoid. Course Initial Documented Vital Signs Temperature 98.0 F 11/02/18 10:33 Pulse Rate 97 H 11/02/18 10:33 Respiratory Rate 20 11/02/18 10:33 Blood Pressure 149/81 H 11/02/18 10:33 Pulse Oximetry 99 11/02/18 10:33 Last Documented Vital Signs Temperature 97.3 F L 11/03/18 06:00 Pulse Rate 93 H 11/03/18 06:00 Respiratory Rate 19 11/03/18 06:00 Blood Pressure 175/83 H 11/03/18 06:00 Pulse Oximetry 97 11/03/18 06:00 Medical Decision Making MDM Narrative Medical decision making narrative: 48yo F with long psych history here for evaluation of worsening paranoia. Her stepfather is a psychiatrist here Dr. Brown and felt that her paranoia is getting worst. Labs reviewed, no leukocytosis. H/H normal. CMP unremarkable. Alcohol negative. Pt is medically clear for psych evaluation. Medical Screen Exam Complete: Yes Emergency Medical Condition: Yes Differential Diagnosis Differential Diagnosis: Worsening paranoia vs. borderline personality vs. polysubstance abuse Lab Data Result diagrams: 11/02/18 10:40 11/02/18 10:40 Lab Results 11/02/18 11/02/18 11/02/18 Range/Units 10:40 10:40 12:35 WBC 6.1 (4.0-11.0) th/mm3 RBC 4.43 (4.00-5.30) mil/mm3 Hgb 14.7 (11.6-15.3) gm/dL Hct 43.9 (35.0-46.0) % MCV 99.1 (80.0-100.0) fL MCH 33.1 (27.0-34.0) pg MCHC 33.4 (32.0-36.0) % RDW 14.3 (11.6-17.2) % Plt Count 223 (150-450) th/mm3 MPV 8.9 (7.0-11.0) fL Neut % (Auto) 55.3 (16.0-70.0) % Lymph % (Auto) 35.9 (9.0-44.0) % Henry % (Auto) 6.2 (0.0-8.0) % Eos % (Auto) 1.7 (0.0-4.0) % Baso % (Auto) 0.9 (0.0-2.0) % Neut # (Auto) 3.4 (1.8-7.7) th/mm3 Lymph # (Auto) 2.2 (1.0-4.8) th/mm3 Henry # (Auto) 0.4 (0.0-0.9) th/mm3 Eos # (Auto) 0.1 (0.0-0.4) th/mm3 Baso # (Auto) 0.1 (0.0-0.2) th/mm3 WBC Differential . Differential Comment Auto diff final Sodium 140 (136-145) meq/L Potassium 3.6 (3.5-5.1) meq/L Chloride 105 (98-107) meq/L Carbon Dioxide 30.8 (21.0-32.0) meq/L Anion Gap 4 L (5-15) meq/L BUN 8 (7-18) mg/dL Creatinine 0.73 (0.50-1.00) mg/dL Estimated GFR 85 L (>89) mL/min Random Glucose 97 (74-106) mg/dL Calcium 8.4 L (8.5-10.1) mg/dL Magnesium 1.9 (1.5-2.5) mg/dL Total Bilirubin 0.4 (0.2-1.0) mg/dL AST 20 (15-37) U/L ALT 6 L (10-53) U/L Alkaline Phosphatase 128 H (45-117) U/L Total Protein 7.0 (6.4-8.2) g/dL Albumin 3.4 (3.4-5.0) g/dL TSH 1.220 (0.358-3.740) uIU/mL Urine Color (Yellw/Straw) Urine Clarity (Clear) Urine pH (5.0-8.5) Ur Specific [place] (1.002-1.035) Urine Protein (Neg-Trace) mg/dL Urine Glucose (UA) (Negative) mg/dL Urine Ketones (Negative) mg/dL Urine Occult Blood (Negative) Urine Nitrate (Negative) Urine Bilirubin (Negative) Urine Urobilinogen (Less than 2) mg/dL Ur Leukocyte Esterase (Negative) Urine RBC (0-3) /hpf Urine WBC (0-5) /hpf Ur Squamous Epith Cells (0-5) /hpf Urine Bacteria (None) /hpf Urine Mucus (Occasional) /lpf Micro UA Comment Ur Microscopic Review Urine Culture Comments Urine Opiates Screen Neg (Neg) Ur Barbiturates Screen Neg (Neg) Ur Amphetamines Screen Neg (Neg) U Benzodiazepines Scrn Neg (Neg) Urine Cocaine Screen Neg (Neg) U Cannabinoids Screen Neg (Neg) Serum Alcohol Less than 3 (0-5) mg/dL 11/02/18 Range/Units 12:35 WBC (4.0-11.0) th/mm3 RBC (4.00-5.30) mil/mm3 Hgb (11.6-15.3) gm/dL Hct (35.0-46.0) % MCV (80.0-100.0) fL MCH (27.0-34.0) pg MCHC (32.0-36.0) % RDW (11.6-17.2) % Plt Count (150-450) th/mm3 MPV (7.0-11.0) fL Neut % (Auto) (16.0-70.0) % Lymph % (Auto) (9.0-44.0) % Henry % (Auto) (0.0-8.0) % Eos % (Auto) (0.0-4.0) % Baso % (Auto) (0.0-2.0) % Neut # (Auto) (1.8-7.7) th/mm3 Lymph # (Auto) (1.0-4.8) th/mm3 Henry # (Auto) (0.0-0.9) th/mm3 Eos # (Auto) (0.0-0.4) th/mm3 Baso # (Auto) (0.0-0.2) th/mm3 WBC Differential Differential Comment Sodium (136-145) meq/L Potassium (3.5-5.1) meq/L Chloride (98-107) meq/L Carbon Dioxide (21.0-32.0) meq/L Anion Gap (5-15) meq/L BUN (7-18) mg/dL Creatinine (0.50-1.00) mg/dL Estimated GFR (>89) mL/min Random Glucose (74-106) mg/dL Calcium (8.5-10.1) mg/dL Magnesium (1.5-2.5) mg/dL Total Bilirubin (0.2-1.0) mg/dL AST (15-37) U/L ALT (10-53) U/L Alkaline Phosphatase (45-117) U/L Total Protein (6.4-8.2) g/dL Albumin (3.4-5.0) g/dL TSH (0.358-3.740) uIU/mL Urine Color Yellow (Yellw/Straw) Urine Clarity Clear (Clear) Urine pH 6.0 (5.0-8.5) Ur Specific [place] 1.008 (1.002-1.035) Urine Protein Negative (Neg-Trace) mg/dL Urine Glucose (UA) Negative (Negative) mg/dL Urine Ketones Trace H (Negative) mg/dL Urine Occult Blood Small H (Negative) Urine Nitrate Negative (Negative) Urine Bilirubin Negative (Negative) Urine Urobilinogen Less than 2 (Less than 2) mg/dL Ur Leukocyte Esterase Small H (Negative) Urine RBC 1 (0-3) /hpf Urine WBC 5 (0-5) /hpf Ur Squamous Epith Cells 1 (0-5) /hpf Urine Bacteria Rare H (None) /hpf Urine Mucus Few H (Occasional) /lpf Micro UA Comment Culture not ind Ur Microscopic Review Not Reportable Urine Culture Comments Culture not ind Urine Opiates Screen (Neg) Ur Barbiturates Screen (Neg) Ur Amphetamines Screen (Neg) U Benzodiazepines Scrn (Neg) Urine Cocaine Screen (Neg) U Cannabinoids Screen (Neg) Serum Alcohol (0-5) mg/dL Discharge Plan Discharge Disposition Patient Disposition: ED Admit(ED Internal Use Only) Discharge Order Discharge Orders: ED Use Only Admit Order (Routine); Ordered 11/02/18 Ordered By: Nimisha Aguilar Physicians Team ED Provider: Rema Calderon Primary Care Provider: UNKNOWN, Attending Provider: Harman Pereyra Status ED Status: Left Department Discharge Information Discharge Date/Time: 11/02/18 13:32
[2018-11-02 11:04] LABS: Baso # (Auto) 0.1 th/mm3 (0.0-0.2); Baso % (Auto) 0.9 % (0.0-2.0); Eos # (Auto) 0.1 th/mm3 (0.0-0.4); Eos % (Auto) 1.7 % (0.0-4.0); Hematocrit 43.9 % (35.0-46.0); Hemoglobin 14.7 gm/dL (11.6-15.3); Lymph # (Auto) 2.2 th/mm3 (1.0-4.8); Lymph % (Auto) 35.9 % (9.0-44.0); Mean Corpuscular HGB Conc 33.4 % (32.0-36.0); Mean Corpuscular Hemoglobin 33.1 pg (27.0-34.0); Mean Corpuscular Volume 99.1 fL (80.0-100.0); Mean Platelet Volume 8.9 fL (7.0-11.0); Mono # (Auto) 0.4 th/mm3 (0.0-0.9); Mono % (Auto) 6.2 % (0.0-8.0); Neut # (Auto) 3.4 th/mm3 (1.8-7.7); Neut % (Auto) 55.3 % (16.0-70.0); Platelet Count 223 th/mm3 (150-450); Red Blood Count 4.43 mil/mm3 (4.00-5.30); Red Cell Distribution Width 14.3 % (11.6-17.2); White Blood Count 6.1 th/mm3 (4.0-11.0)
[2018-11-02 11:20] LABS: Alanine Aminotransferase 6 U/L (10-53); Albumin 3.4 g/dL (3.4-5.0); Anion Gap 4 meq/L (5-15); Aspartate Aminotransferase 20 U/L (15-37); Blood Urea Nitrogen 8 mg/dL (7-18); Calcium 8.4 mg/dL (8.5-10.1); Carbon Dioxide 30.8 meq/L (21.0-32.0); Chloride 105 meq/L (98-107); Glomerular Filtration Rate 85 mL/min (>89); Glucose,Random 97 mg/dL (74-106); Magnesium 1.9 mg/dL (1.5-2.5); Potassium 3.6 meq/L (3.5-5.1); Sodium 140 meq/L (136-145)
[2018-11-02 11:30] LABS: Alkaline Phosphatase 128 U/L (45-117)
[2018-11-02 13:05] LABS: Bacteria,Urine Rare /hpf; Bilirubin,Urine Negative (Negative); Clarity,Urine Clear (Clear); Color,Urine Yellow (Yellw/Straw); Glucose,Urine (UA) Negative (Negative); Leukocyte Esterase,Urine Small (Negative); Mucus,Urine Few /lpf (Occasional); Nitrite,Urine Negative (Negative); Specific Gravity,Urine 1.008 (1.002-1.035); Squamous Epithelial Cell,Urine 1 /hpf (0-5)
[2018-11-02 13:09] LABS: Amphetamine Screen,Urine Neg (Neg); Barbiturate Screen,Urine Neg (Neg); Cannabinoid Screen,Urine Neg (Neg); Cocaine Screen,Urine Neg (Neg)
[2018-11-02 13:15] LABS: Opiate Screen,Urine Neg (Neg)
--- NOTE | 2018-11-02 13:24 | ED ---
HPI - Psych - General Source: patient, family Mode of arrival: ambulatory Limitations: physical limitation - History of Present Illness MD complaint: other Onset (ago): day(s) Duration: constant History of same: Yes Relieving factors: none Exacerbating factors: none Context: other Associated psychiatric symptoms: auditory hallucinations, delusions Associated symptoms: denies other symptoms Treatments prior to arrival: none If self harm: other (Would not disclose) - General Chief Complaint: Psychiatric Symptoms Stated Complaint: Fall Time Seen by Provider: 11/02/18 12:25 - History of Present Illness HPI Narrative: History of Present Illness HPI narrative: Patient has another medical record with number [id number]. Previous visits are under other medical record. The patient is a 48-year-old , female, resident of an [facility], with psychiatric history of bipolar disorder, borderline personality, dystonia who was brought in by her mother and stepfather for evaluation of worsening paranoia. Pt lives at a facility and this morning left the facility on her own and was found at a local mall, increase in paranoid statements indicating she believes that there are people at her home that are watching her, increase in auditory hallucinations. She did fall and hit her head 2 days ago. She was evaluated here and had CT brain, CT cervical spine completed and sutures repaired. Patient was last psychiatrically admitted here to [facility] in June 2017. Patient is seen. Case discussed with her mother and stepfather at bedside.Patient placed under a BA. Patient is alert, oriented female who appears older than stated age. She has cervical dystonia. She is guarded in her responses. She tells me "I tried to escape. My parents think I am having delusions. I am hearing things that are so crazy". She admits to increase in auditory hallucinations for the past 2 days but would not disclose the content to this job specification writer. She asked RN " how is he would be to kill someone?". The psychiatric review of system is limited due to patient's current mental staus. (Nimisha Aguilar) - Related Data Home Medications Medication Instructions Recorded Confirmed Citroma 11/02/18 11/02/18 Dulcolax Stool Softener (dss) 11/02/18 Paxil 11/02/18 11/02/18 baclofen 20 mg PO QID 11/02/18 11/02/18 baclofen 20 mg PO QID 11/02/18 11/02/18 carbidopa-levodopa [Sinemet CR] 1 tab PO Q8H 11/02/18 11/02/18 famotidine [Pepcid] 20 mg PO DAILY 11/02/18 11/02/18 gabapentin See Label Instructions .ROUTE 11/02/18 11/02/18 .COMPLEX lorazepam [Ativan] 2 11/02/18 magnesium hydroxide [Milk of 15 ml PO DAILY PRN 11/02/18 11/02/18 Magnesia] melatonin 11/02/18 oxycodone [OxyContin] 11/02/18 11/02/18 tizanidine 2 mg PO TID PRN 11/02/18 11/02/18 trazodone 11/02/18 Allergies Allergy/AdvReac Type Severity Reaction Status Date / Time diclofenac AdvReac Ulcers Verified 11/02/18 10:44 etodolac AdvReac Ulcers Verified 11/02/18 10:44 flurbiprofen AdvReac Ulcers Verified 11/02/18 10:44 ibuprofen AdvReac Ulcers Verified 11/02/18 10:44 indomethacin AdvReac Ulcers Verified 11/02/18 10:44 PMFSH - History History Provided By: Patient - Medical History Medical History: Medical History (Last Updated 11/02/18 @ 10:39 by Kennedi Mast) Anxiety Bipolar II disorder Delusional disorder Dystonia GERD (gastroesophageal reflux disease) Hypertension Insomnia Parkinson disease Polyneuropathy Rhabdomyolysis Vitamin deficiency - Social History I have reviewed the patient's Social History: Yes - Tobacco History Smoking Status: Refused to answer - Alcohol History How Often Do You Have a Drink Containing Alcohol: Unable to Obtain - Substance Use History Substance History: Unable to Obtain - Travel History Recent Travel in the [place] Within the Last 8 Weeks: No Recent Travel Out of the Country Within the Last 8 Weeks: No - Immunization History Tetanus Immunization: Unsure Psychiatric History - Psychiatric History Psychiatric Treatment History: History of Psychiatric Treatment History of Inpatient Treatment: Yes Firearms in Home: No - Family Psychiatric History None reported (Nimisha Aguilar) Physical Exam - General Limitations: no limitations Mental Status Examination Appearance: Disheveled Consciousness: Alert Orientation: x4 Motor Activity: Abnormal gait Speech: Hesitant Language: Adequate Fund of Knowledge: Adequate Attention and Concentration: Inadequate Memory: Unremarkable Mood: Anxious Affect: Blunt Thought Process & Associations: Other (Diminished) Thought Content: Hallucinations, Delusional Hallucination Type: Auditory Delusion Type: Paranoid Suicidal Ideation: No Suicidal Plan: No Suicidal Intention: No Homicidal Ideation: No Homicidal Plan: No Homicidal Intention: No Insight: Poor Judgment: Impulsive Initial Documented Vital Signs Temperature 98.0 F 11/02/18 10:33 Pulse Rate 97 H 11/02/18 10:33 Respiratory Rate 20 11/02/18 10:33 Blood Pressure 149/81 H 11/02/18 10:33 Pulse Oximetry 99 11/02/18 10:33 Last Documented Vital Signs Temperature 99.1 F 11/02/18 15:59 Pulse Rate 97 H 11/02/18 10:33 Respiratory Rate 20 11/02/18 15:59 Blood Pressure 146/67 H 11/02/18 15:59 Pulse Oximetry 96 11/02/18 15:59 MDM - Psych - Diagnosis (1) Bipolar disorder Code(s): F31.9 - Bipolar disorder, unspecified Status: Acute - Lab Data Result diagrams: 11/02/18 10:40 11/02/18 10:40 - [facility] Narrative Medical decision making narrative: Patient has been placed under an involuntary status as she not willing to stay in the hospital. Patient has recently demonstrated behavior that has been placing her at risk including walking away from the [facility]. She has also reported increase in auditory hallucinations and has been exhibited increasing paranoid behavior. Treatment plan has been discussed with her mother and stepfather who are in agreement to have the patient come in for further evaluation, for stabilization, and for safety. (Nimisha Aguilar) - Lab Data Lab Results 11/02/18 11/02/18 11/02/18 Range/Units 10:40 10:40 12:35 WBC 6.1 (4.0-11.0) th/mm3 RBC 4.43 (4.00-5.30) mil/mm3 Hgb 14.7 (11.6-15.3) gm/dL Hct 43.9 (35.0-46.0) % MCV 99.1 (80.0-100.0) fL MCH 33.1 (27.0-34.0) pg MCHC 33.4 (32.0-36.0) % RDW 14.3 (11.6-17.2) % Plt Count 223 (150-450) th/mm3 MPV 8.9 (7.0-11.0) fL Neut % (Auto) 55.3 (16.0-70.0) % Lymph % (Auto) 35.9 (9.0-44.0) % Haines % (Auto) 6.2 (0.0-8.0) % Eos % (Auto) 1.7 (0.0-4.0) % Baso % (Auto) 0.9 (0.0-2.0) % Neut # (Auto) 3.4 (1.8-7.7) th/mm3 Lymph # (Auto) 2.2 (1.0-4.8) th/mm3 Haines # (Auto) 0.4 (0.0-0.9) th/mm3 Eos # (Auto) 0.1 (0.0-0.4) th/mm3 Baso # (Auto) 0.1 (0.0-0.2) th/mm3 WBC Differential . Differential Comment Auto diff final Sodium 140 (136-145) meq/L Potassium 3.6 (3.5-5.1) meq/L Chloride 105 (98-107) meq/L Carbon Dioxide 30.8 (21.0-32.0) meq/L Anion Gap 4 L (5-15) meq/L BUN 8 (7-18) mg/dL Creatinine 0.73 (0.50-1.00) mg/dL Estimated GFR 85 L (>89) mL/min Random Glucose 97 (74-106) mg/dL Calcium 8.4 L (8.5-10.1) mg/dL Magnesium 1.9 (1.5-2.5) mg/dL Total Bilirubin 0.4 (0.2-1.0) mg/dL AST 20 (15-37) U/L ALT 6 L (10-53) U/L Alkaline Phosphatase 128 H (45-117) U/L Total Protein 7.0 (6.4-8.2) g/dL Albumin 3.4 (3.4-5.0) g/dL TSH 1.220 (0.358-3.740) uIU/mL Urine Color (Yellw/Straw) Urine Clarity (Clear) Urine pH (5.0-8.5) Ur Specific [place] (1.002-1.035) Urine Protein (Neg-Trace) mg/dL Urine Glucose (UA) (Negative) mg/dL Urine Ketones (Negative) mg/dL Urine Occult Blood (Negative) Urine Nitrate (Negative) Urine Bilirubin (Negative) Urine Urobilinogen (Less than 2) mg/dL Ur Leukocyte Esterase (Negative) Urine RBC (0-3) /hpf Urine WBC (0-5) /hpf Ur Squamous Epith Cells (0-5) /hpf Urine Bacteria (None) /hpf Urine Mucus (Occasional) /lpf Micro UA Comment Ur Microscopic Review Urine Culture Comments Urine Opiates Screen Neg (Neg) Ur Barbiturates Screen Neg (Neg) Ur Amphetamines Screen Neg (Neg) U Benzodiazepines Scrn Neg (Neg) Urine Cocaine Screen Neg (Neg) U Cannabinoids Screen Neg (Neg) Serum Alcohol Less than 3 (0-5) mg/dL 11/02/18 Range/Units 12:35 WBC (4.0-11.0) th/mm3 RBC (4.00-5.30) mil/mm3 Hgb (11.6-15.3) gm/dL Hct (35.0-46.0) % MCV (80.0-100.0) fL MCH (27.0-34.0) pg MCHC (32.0-36.0) % RDW (11.6-17.2) % Plt Count (150-450) th/mm3 MPV (7.0-11.0) fL Neut % (Auto) (16.0-70.0) % Lymph % (Auto) (9.0-44.0) % Haines % (Auto) (0.0-8.0) % Eos % (Auto) (0.0-4.0) % Baso % (Auto) (0.0-2.0) % Neut # (Auto) (1.8-7.7) th/mm3 Lymph # (Auto) (1.0-4.8) th/mm3 Haines # (Auto) (0.0-0.9) th/mm3 Eos # (Auto) (0.0-0.4) th/mm3 Baso # (Auto) (0.0-0.2) th/mm3 WBC Differential Differential Comment Sodium (136-145) meq/L Potassium (3.5-5.1) meq/L Chloride (98-107) meq/L Carbon Dioxide (21.0-32.0) meq/L Anion Gap (5-15) meq/L BUN (7-18) mg/dL Creatinine (0.50-1.00) mg/dL Estimated GFR (>89) mL/min Random Glucose (74-106) mg/dL Calcium (8.5-10.1) mg/dL Magnesium (1.5-2.5) mg/dL Total Bilirubin (0.2-1.0) mg/dL AST (15-37) U/L ALT (10-53) U/L Alkaline Phosphatase (45-117) U/L Total Protein (6.4-8.2) g/dL Albumin (3.4-5.0) g/dL TSH (0.358-3.740) uIU/mL Urine Color Yellow (Yellw/Straw) Urine Clarity Clear (Clear) Urine pH 6.0 (5.0-8.5) Ur Specific [place] 1.008 (1.002-1.035) Urine Protein Negative (Neg-Trace) mg/dL Urine Glucose (UA) Negative (Negative) mg/dL Urine Ketones Trace H (Negative) mg/dL Urine Occult Blood Small H (Negative) Urine Nitrate Negative (Negative) Urine Bilirubin Negative (Negative) Urine Urobilinogen Less than 2 (Less than 2) mg/dL Ur Leukocyte Esterase Small H (Negative) Urine RBC 1 (0-3) /hpf Urine WBC 5 (0-5) /hpf Ur Squamous Epith Cells 1 (0-5) /hpf Urine Bacteria Rare H (None) /hpf Urine Mucus Few H (Occasional) /lpf Micro UA Comment Culture not ind Ur Microscopic Review Not Reportable Urine Culture Comments Culture not ind Urine Opiates Screen (Neg) Ur Barbiturates Screen (Neg) Ur Amphetamines Screen (Neg) U Benzodiazepines Scrn (Neg) Urine Cocaine Screen (Neg) U Cannabinoids Screen (Neg) Serum Alcohol (0-5) mg/dL
[2018-11-02] MEDS ORDERED: Aluminum/Magnesium/Simethacone Susp 30 ML UDC PO PRN (13:25)
[2018-11-02] MEDS ORDERED: Bisacodyl 10 MG Supp RECTAL PRN (13:25)
[2018-11-02] MEDS: Senna/Docusate Sodium 8.6/50 MG Tablet PO SCH (21:00)
[2018-11-02] MEDS: LORazepam 1 MG Tablet PO PRN (21:01)
[2018-11-03] MEDS: LORazepam 1 MG Tablet PO PRN (00:13)
[2018-11-03] MEDS: Senna/Docusate Sodium 8.6/50 MG Tablet PO SCH ×2 (08:55→20:34)
[2018-11-03 08:58] LABS: Anion Gap 7 meq/L (5-15); Blood Urea Nitrogen 7 mg/dL (7-18); Calcium 8.4 mg/dL (8.5-10.1); Carbon Dioxide 27.2 meq/L (21.0-32.0); Chloride 105 meq/L (98-107); Glomerular Filtration Rate Greater Than 89 mL/min (>89); Glucose,Random 100 mg/dL (74-106); Potassium 3.3 meq/L (3.5-5.1); Sodium 139 meq/L (136-145)
[2018-11-03 08:59] LABS: Cholesterol 126 mg/dL (120-200); Triglycerides 61 mg/dL (42-150)
[2018-11-03 09:01] LABS: Chol/HDL Ratio 3.66 Ratio; HDL Cholesterol 34.4 mg/dL (40.0-60.0); LDL Cholesterol,Calculated 79 mg/dL (0-99)
[2018-11-03] MEDS: Polyethylene Glycol 3350 17 GM Packet PO SCH (14:08)
[2018-11-03 16:04] LABS: Hemoglobin A1c 5.2 % (4.3-6.0)
[2018-11-03] MEDS ORDERED: Naloxone Inj 0.4 MG/ML Vial IV.PUSH PRN (16:04)
--- NOTE | 2018-11-03 16:20 | P.CONIM ---
History of Present Illness Primary Care Provider: UNKNOWN History of Present Illness: 28-year-old female with a history of Parkinson's, dystonia, chronic pain admitted to med psych for complication needs of bipolar disorder. Many of her home meds were transferred to inpatient list, but her pain medications have not been added. Psychiatry consulted us to review her medical condition and to manage pain medications while she is here. Patient is a somewhat poor historian due to her very anxious state. She is having what appears to be a panic attack and complains that she feels like she is going to . Labs drawn on admission and since then have been for the most part within normal limits, no critical labs as recently as today. 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 She has Parkinson's but is not exhibiting any resting tremor, taking her routine medications. When asked where she is experiencing pain she states everywhere. When asked what feels wrong she states she feels like she is going to . Review of systems and her anxiety induced state is unreliable. Review of Systems ROS Unobtainable: unobtainable due to mental condition [facility] Medical History Medical History Anxiety (Acute) Bipolar II disorder (Acute) Delusional disorder (Acute) Dystonia (Acute) GERD (gastroesophageal reflux disease) (Acute) Hypertension (Acute) Insomnia (Acute) Parkinson disease (Acute) Polyneuropathy (Acute) Rhabdomyolysis (Acute) Vitamin deficiency (Acute) Family History Family History Other Hypertension Social History Social History Substance History: Unable to Obtain Second Hand Smoke Exposure: Yes Smoking Status: Refused to answer Tobacco Type: Cigarettes How Often Do You Have a Drink Containing Alcohol: Unable to Obtain Recent Travel in [place] within the Last 8 Weeks: No Recent Out of Country Travel within the Last 8 Weeks: No Immunization History Tetanus Immunization: Unsure Hx Influenza Vaccine This Season: No Medications and Allergies Allergies Allergy/AdvReac Type Severity Reaction Status Date / Time diclofenac AdvReac Ulcers Verified 11/02/18 10:44 etodolac AdvReac Ulcers Verified 11/02/18 10:44 flurbiprofen AdvReac Ulcers Verified 11/02/18 10:44 ibuprofen AdvReac Ulcers Verified 11/02/18 10:44 indomethacin AdvReac Ulcers Verified 11/02/18 10:44 Home Medications Medication Instructions Recorded Confirmed Type Citroma 11/02/18 11/02/18 History Dulcolax Stool Softener (dss) 11/02/18 History Paxil 11/02/18 11/02/18 History baclofen 20 mg PO QID 11/02/18 11/02/18 History baclofen 20 mg PO QID 11/02/18 11/02/18 History carbidopa-levodopa [Sinemet CR] 1 tab PO Q8H 11/02/18 11/02/18 History famotidine [Pepcid] 20 mg PO DAILY 11/02/18 11/02/18 History gabapentin See Label Instructions .ROUTE 11/02/18 11/02/18 History .COMPLEX lorazepam [Ativan] 2 11/02/18 History magnesium hydroxide [Milk of 15 ml PO DAILY PRN 11/02/18 11/02/18 History Magnesia] melatonin 11/02/18 History oxycodone [OxyContin] 11/02/18 11/02/18 History tizanidine 2 mg PO TID PRN 11/02/18 11/02/18 History trazodone 11/02/18 History Active Medications: Active Medications Al Hydrox/Mg Hydrox/Simethicone (Mag-Al Plus Susp Liq) 30 ml PO Q6H PRN PRN Reason: DYSPEPSIA Al Hydroxide/Mg Hydroxide (Milk Of Magnesia Liq) 30 ml PO Q12H PRN PRN Reason: Mild Constipation Baclofen (Lioresal) 20 mg PO Q8HR [facility] Last Admin: 11/03/18 14:37 Dose: 20 mg Bisacodyl (Dulcolax Supp) 10 mg RECTAL DAILY PRN PRN Reason: SEVERE CONSITIPATION Carbidopa/Levodopa (Sinemet Cr 50/200 Mg) 1 tab PO TID MARY Clonidine HCl (Catapres) 0.1 mg PO Q4H PRN PRN Reason: FOR SYST BP>155, DIAST>90 Famotidine (Pepcid) 20 mg PO HS MARY Flumazenil (Romazecon Inj) 0.2 mg IV.PUSH Q1M PRN PRN Reason: OVERSEDATION Gabapentin (Neurontin) 200 mg PO TID MARY Lorazepam (Ativan) 1 mg PO Q4H PRN PRN Reason: for CIWA 8-10 Last Admin: 11/03/18 00:13 Dose: 1 mg Lorazepam (Ativan Inj) 2 mg IV.PUSH Q2H PRN PRN Reason: for CIWA 11-14 Lorazepam (Ativan Inj) 2 mg IV.PUSH Q1H PRN PRN Reason: for CIWA 15-20 Lorazepam (Ativan Inj) 2 mg IV.PUSH Q15M PRN PRN Reason: for CIWA > 20 Lorazepam (Ativan Inj) 1 mg IV.PUSH Q4H PRN PRN Reason: for CIWA 8-10 Lorazepam (Ativan) 2 mg PO Q8H [facility] Last Admin: 11/03/18 14:37 Dose: 2 mg Lorazepam (Ativan) 2 mg PO Q4H PRN PRN Reason: for CIWA 11-14 Melatonin (Melatonin) 5 mg PO HS [facility] Miscellaneous (Pill Splitter) 1 each OTHER UNSCH PRN PRN Reason: SEE LABEL COMMENTS Naloxone HCl (Narcan Inj) 0.4 mg IV.PUSH ONCE PRN PRN Reason: SEDATION Nicotine (Habitrol 21 Mg Patch.24 Hr) 1 patch T-DERMAL DAILY [facility] Last Admin: 11/03/18 08:55 Dose: Not Given Ondansetron HCl (Zofran Odt) 4 mg PO Q4H PRN PRN Reason: NAUSEA Oxycodone HCl (Oxycontin Cr) 20 mg PO Q12HR [facility] Paroxetine HCl (Paxil) 30 mg PO HS [facility] Polyethylene Glycol (Miralax) 17 gm PO DAILY [facility] Last Admin: 11/03/18 14:08 Dose: Not Given Senna/Docusate Sodium (Maye-Colace) 1 tab PO BID [facility] Last Admin: 11/03/18 08:55 Dose: Not Given Sennosides (Senokot) 17.2 mg PO Q12H PRN PRN Reason: Moderate Constipation Tizanidine HCl (Zanaflex) 2 mg PO TID [facility] Trazodone HCl (Desyrel) 50 mg PO HS [facility] Trihexyphenidyl HCl (Artane) 2 mg PO TID [facility] Physical Exam Vital signs: Last Vital Signs Temp 97.3 F L 11/03/18 06:00 Pulse 93 H 11/03/18 06:00 Resp 19 11/03/18 06:00 BP 175/83 H 11/03/18 06:00 Pulse Ox 97 11/03/18 06:00 Intake & Output 11/01/18 11/02/18 11/03/18 11/04/18 06:59 06:59 06:59 06:59 Intake Total 480 / 480 Balance 480 / 480 Weight 54.6 kg Narrative: GENERAL: AAOx3, thin, generally weak, deconditioned from Parkinson's , highly anxious SKIN: Warm and dry, no rashes. HEAD: Atraumatic. Normocephalic. EYES: Pupils equal, round, reactive to light. No scleral icterus. No injection or drainage. ENT: No nasal bleeding or discharge. Moist mucous membranes. Nonerythematous oropharynx. NECK: Trachea midline. No JVD. Thyroid size within normal limits. CARDIOVASCULAR: Tachycardia. No murmur, no gallops, no rubs. RESPIRATORY: Clear and equal to auscultation bilaterally. No crackles, no wheezes. No accessory muscle use. GASTROINTESTINAL: Abdomen soft, non-tender, nondistended, normal active bowel sounds. Hepatic and splenic margins not palpable. MUSCULOSKELETAL: Moderate increased muscle tone of right sternocleidomastoid and right neck musculature. No obvious deformities. No edema. NEUROLOGICAL: Awake and alert. No obvious cranial nerve deficits. Motor grossly within normal limits, no resting tremor currently. PSYCHIATRIC: Anxious mood and affect,; insight and judgment impaired by panic attack Results Labs CBC & Chem 7: 11/02/18 10:40 11/03/18 08:19 Assessment and Plan (1) Bipolar disorder: Code(s): F31.9 - Bipolar disorder, unspecified Status: Acute Plan Bipolar disorder with anxiety She seemed to be having a panic attack during her visit, poor historian, further management per psychiatry Chronic pain Patient allegedly takes 30 mg of OxyContin every 12 hours, her pharmacy only list 20 and 40 mg pills Begin 20 mg of OxyContin every 12 hours Narcan ordered as PRN option in case oversedation occurs We will reevaluate her tomorrow Hypokalemia Potassium down to 3.3, 10 mEq x1 given Recheck potassium with a.m. labs
--- NOTE | 2018-11-03 16:22 | P.HPPSY ---
Provisional Diagnosis Admission Date: November 02, 2018 13:34 [place].: Psychosis NOS Anxiety Disorder NOS Bipolar II by hx Borderline PD by hx [place] III.: Torticollis Parkinsonism Chronic Pain Competence Certification of Person's Competence To Provide Express and Informed Consent I have personally examined Rosa Jensen, a person being served at [facility] on, November 03, 2018 1551. Express and informed consent means consent voluntarily given in writing, by a competent person, after sufficient explanation and disclosure of the subject matter involved to enable the person to make a knowing and willful decision without any element of force, fraud, deceit, duress, or other form of constraint or coercion. This person is 18 years of age or older, is not now known to be incompetent to consent to treatment with a guardian advocate, and does not have a health care surrogate or proxy currently making medical treatment decisions. I have found this person to be one of the following: [] Competent to provide express and informed consent, as defined above, for voluntary admission to this facility and is competent to provide express and informed consent for treatment. He/she has the consistent capacity to make well reasoned, willful, and knowing decisions concerning his or her medical or mental health treatment. The person fully and consistently understands the purpose of the admission for examination/placement and is fully capable of personally exercising all rights [place]xxx] Incompetent to provide express and informed consent to voluntary admission , and this is incompetent to provide express and informed consent to treatment. The person must be transferred to involuntary status and a petition for a guardian advocate filed with the Circuit Court. [] Refusing to provide express and informed consent to voluntary admission but is competent to provide express and informed consent for treatment. The person must be discharged or transferred to involuntary status. Form shall be completed within 24 hours of a person's arrival at the receiving facility and filed in the clinical record of each person: 1. Admitted on a voluntary basis 2. Permitted to provide express and informed consent to his/her own treatment 3. Allowed to transfer from involuntary to voluntary status 4. Prior to permitting a person to consent to his or her own treatment after having been previously found incompetent to consent to treatment. History of Present Illness Capacity: Lacks capacity Chief Complaint: "Nothing matters because they are going to kill me" History of Present Illness: The patient is a 48-year-old , female, resident of an [facility], with psychiatric history of bipolar disorder, borderline personality, dystonia who was brought in by her mother and stepfather for evaluation of worsening paranoia. Pt lives at a facility and this morning left the facility on her own and was found at a local mall, increase in paranoid statements indicating she believes that there are people at her home that are watching her, increase in auditory hallucinations. She did fall and hit her head 2 days ago. She was evaluated here and had CT brain, CT cervical spine completed and sutures repaired. Patient was last psychiatrically admitted here to [facility] in June 2017. Patient is seen. Case discussed with her mother and stepfather at bedside.Patient placed under a BA. Patient is alert, oriented female who appears older than stated age. She has cervical dystonia. She is guarded in her responses. She tells me "I tried to escape. My parents think I am having delusions. I am hearing things that are so crazy". She admits to increase in auditory hallucinations for the past 2 days but would not disclose the content to this proposal lead writer. She asked RN " how is he would be to kill someone?". The psychiatric review of system is limited due to patient's current mental status. The patient was seen at bedside on the inpatient medical psych unit today; the patient's mother and maternal aunt were at her bedside and she initially protested efforts to speak with her alone for the psychiatric interview. Patient was uncooperative with psychiatric interview and remained discharge focus, "I want you to discharge me I should not be Brennan acted". Patient was asked if she feels safe to return to her [facility] and she reports "no I won't be going back there." The patient was evasive to questions about her recent elopement from the facility. Attempts were made to normalize the patient's recent reported paranoia as a possible side effect from her treatment with Sinemet but the patient rejected this idea and insists that she has been on Sinemet "a long time and it is finally helping me." Medication reconciliation was discussed with the patient and she confirmed the home medications as listed but she refused to sign informed consent for her psychotropics, "I do not trust the medications you will give me." The patient also refused to restart he oxycodone pain medication despite warnings that this could bring on opiate withdrawal. The patient did acknowledge the need to restart her treatment with Ativan. The patient was asked for permission to invite her mother back into the room to continue the psychiatric interview but she declined at this time. The patient appeared very uncomfortable and distressed therefore it was agreed upon that this psychiatric interview would be completed at a later time. Past psychiatric history: Past Diagnoses: Medical records indicate that the patient has been diagnosed with anxiety, bipolar 2, delusional disorder, and borderline personality disorder. Hospitalizations: The patient reportedly has multiple admissions to [facility] the most recent being in June 2017. Those past records are currently unavailable. Suicidal behavior: Patient reportedly has a history of self-injurious behaviors but patient refused to discuss. Past psychotropic medication trials: Patient refused to discuss Outpatient MH treatment: Patient refused to discuss Substance Use Treatment: Patient refused to discuss Abuse/assault history: Patient refused to discuss Family psychiatric history: Patient refused to discuss Psychosocial history: Patient currently living in an assisted living facility. She has primary support from her mother and stepfather who also lives in the local area. The patient is on disability and in receives benefits from Medicare and Medicaid. - Inpatient Certification I certify that the inpatient services were ordered in accordance with Medicare regulations governing the order. This includes certification that hospital inpatient services are reasonable and necessary and in the case of services not specified as inpatient-only under 42 CFR 419.22(n), that they are appropriately provided as inpatient services in accordance to with the 2-midnight benchmark under 43 CFR 412.3(e) I certify that inpatient psychiatric hospital services are medically necessary. Evaluation and treatment and/or diagnostic testing are expected to improve the patient's condition. The patient needs on a daily basis, active treatment furnished directly by or requiring the supervision of inpatient psychiatric facility personnel. Estimated Total Length of Stay (Days): 8 Plans for Post Hospital Care: Not yet determined Review of Systems unobtainable due to mental condition PMFSH - History History Provided By: Patient - Medical History Medical History: Medical History (Last Updated 11/02/18 @ 10:39 by Kennedi Mast) Anxiety Bipolar II disorder Delusional disorder Dystonia GERD (gastroesophageal reflux disease) Hypertension Insomnia Parkinson disease Polyneuropathy Rhabdomyolysis Vitamin deficiency - Tobacco History Second Hand Smoke Exposure: Yes Tobacco Use In Past 30 Days: Yes Smoking Status: Refused to answer Tobacco Type: Cigarettes - Alcohol History How Often Do You Have a Drink Containing Alcohol: Unable to Obtain - Substance Use History Substance History: Unable to Obtain - Travel History Recent Travel in the [place] Within the Last 8 Weeks: No Recent Travel Out of the Country Within the Last 8 Weeks: No - Immunization History Tetanus Immunization: Unsure Hx Influenza Vaccine This Season: No Medications and Allergies Active Medications: Active Medications Al Hydrox/Mg Hydrox/Simethicone (Mag-Al Plus Susp Liq) 30 ml PO Q6H PRN PRN Reason: DYSPEPSIA Al Hydroxide/Mg Hydroxide (Milk Of Magnesia Liq) 30 ml PO Q12H PRN PRN Reason: Mild Constipation Baclofen (Lioresal) 20 mg PO Q8HR MARY Last Admin: 11/03/18 14:37 Dose: 20 mg Bisacodyl (Dulcolax Supp) 10 mg RECTAL DAILY PRN PRN Reason: SEVERE CONSITIPATION Carbidopa/Levodopa (Sinemet Cr 50/200 Mg) 1 tab PO TID MARY Clonidine HCl (Catapres) 0.1 mg PO Q4H PRN PRN Reason: FOR SYST BP>155, DIAST>90 Famotidine (Pepcid) 20 mg PO HS MARY Flumazenil (Romazecon Inj) 0.2 mg IV.PUSH Q1M PRN PRN Reason: OVERSEDATION Gabapentin (Neurontin) 200 mg PO TID MARY Lorazepam (Ativan) 1 mg PO Q4H PRN PRN Reason: for CIWA 8-10 Last Admin: 11/03/18 00:13 Dose: 1 mg Lorazepam (Ativan Inj) 2 mg IV.PUSH Q2H PRN PRN Reason: for CIWA 11-14 Lorazepam (Ativan Inj) 2 mg IV.PUSH Q1H PRN PRN Reason: for CIWA 15-20 Lorazepam (Ativan Inj) 2 mg IV.PUSH Q15M PRN PRN Reason: for CIWA > 20 Lorazepam (Ativan Inj) 1 mg IV.PUSH Q4H PRN PRN Reason: for CIWA 8-10 Lorazepam (Ativan) 2 mg PO Q8H MARY Last Admin: 11/03/18 14:37 Dose: 2 mg Lorazepam (Ativan) 2 mg PO Q4H PRN PRN Reason: for CIWA 11-14 Melatonin (Melatonin) 5 mg PO HS [facility] Miscellaneous (Pill Splitter) 1 each OTHER UNSCH PRN PRN Reason: SEE LABEL COMMENTS Nicotine (Habitrol 21 Mg Patch.24 Hr) 1 patch T-DERMAL DAILY [facility] Last Admin: 11/03/18 08:55 Dose: Not Given Ondansetron HCl (Zofran Odt) 4 mg PO Q4H PRN PRN Reason: NAUSEA Paroxetine HCl (Paxil) 30 mg PO HS [facility] Polyethylene Glycol (Miralax) 17 gm PO DAILY [facility] Last Admin: 11/03/18 14:08 Dose: Not Given Senna/Docusate Sodium (Maye-Colace) 1 tab PO BID [facility] Last Admin: 11/03/18 08:55 Dose: Not Given Sennosides (Senokot) 17.2 mg PO Q12H PRN PRN Reason: Moderate Constipation Tizanidine HCl (Zanaflex) 2 mg PO TID [facility] Trazodone HCl (Desyrel) 50 mg PO HS [facility] Trihexyphenidyl HCl (Artane) 2 mg PO TID [facility] Allergies Allergy/AdvReac Type Severity Reaction Status Date / Time diclofenac AdvReac Ulcers Verified 11/02/18 10:44 etodolac AdvReac Ulcers Verified 11/02/18 10:44 flurbiprofen AdvReac Ulcers Verified 11/02/18 10:44 ibuprofen AdvReac Ulcers Verified 11/02/18 10:44 indomethacin AdvReac Ulcers Verified 11/02/18 10:44 Home Medications Medication Instructions Recorded Confirmed Type Citroma 11/02/18 11/02/18 History Dulcolax Stool Softener (dss) 11/02/18 History Paxil 11/02/18 11/02/18 History baclofen 20 mg PO QID 11/02/18 11/02/18 History baclofen 20 mg PO QID 11/02/18 11/02/18 History carbidopa-levodopa [Sinemet CR] 1 tab PO Q8H 11/02/18 11/02/18 History famotidine [Pepcid] 20 mg PO DAILY 11/02/18 11/02/18 History gabapentin See Label Instructions .ROUTE 11/02/18 11/02/18 History .COMPLEX lorazepam [Ativan] 2 11/02/18 History magnesium hydroxide [Milk of 15 ml PO DAILY PRN 11/02/18 11/02/18 History Magnesia] melatonin 11/02/18 History oxycodone [OxyContin] 11/02/18 11/02/18 History tizanidine 2 mg PO TID PRN 11/02/18 11/02/18 History trazodone 11/02/18 History Results - Labs CBC & Chem 7: 11/02/18 10:40 11/03/18 08:19 Labs: Laboratory Results - last 24 hr 11/03/18 08:19 Sodium 139 Potassium 3.3 L Chloride 105 Carbon Dioxide 27.2 Anion Gap 7 BUN 7 Creatinine 0.51 Estimated GFR Greater than 89 Random Glucose 100 Calcium 8.4 L Triglycerides 61 Cholesterol 126 LDL Cholesterol, Calc 79 HDL Cholesterol 34.4 L Cholesterol/HDL Ratio 3.66 Exam Vital signs: Vital Signs 11/02/18 15:59 11/03/18 06:00 Temperature 99.1 F 97.3 F L Pulse Rate 93 H Respiratory Rate 20 19 Blood Pressure 146/67 H 175/83 H Pulse Oximetry 96 97 Intake & Output 11/02/18 11/03/18 11/03/18 18:59 06:59 18:59 Intake Total 120 / 120 360 / 360 Balance 120 / 120 360 / 360 Weight 55.6 kg 54.6 kg Intake: Oral 120 / 120 360 / 360 Oral Supplement 0 / 0 Other: # Voids 4 Weight On Admission 55.6 kg Mental Status Examination Appearance: Disheveled Consciousness: Alert Orientation: Person, Place, Situation Motor Activity: Abnormal gait Speech: Hesitant Language: Adequate Fund of Knowledge: Adequate Attention and Concentration: Inadequate Memory: Unremarkable Mood: Anxious, Irritable Affect: Irritable, Anxious Thought Process & Associations: Disorganized, Other (Diminished) Thought Content: Delusional (Paranoia ) Hallucination Type: None (The patient denied) Delusion Type: Paranoid Suicidal Ideation: No Suicidal Plan: No Suicidal Intention: No Homicidal Ideation: No Homicidal Plan: No Homicidal Intention: No Insight: Poor Judgment: Poor Assessment and Plan - Assessment (1) Bipolar disorder Code(s): F31.9 - Bipolar disorder, unspecified Status: Acute (2) Parkinsonism Code(s): G20 - Parkinson's disease Status: Acute (3) Chronic pain Code(s): G89.29 - Other chronic pain Status: Acute (4) Benzodiazepine dependence Code(s): F13.20 - Sedative, hypnotic or anxiolytic dependence, uncomplicated Status: Acute (5) Opiate dependence Code(s): F11.20 - Opioid dependence, uncomplicated Status: Acute (6) Anxiety disorder, unspecified Code(s): F41.9 - Anxiety disorder, unspecified Status: Chronic (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 Continue with admission to inpatient psychiatry at [facility]; involuntary/lacking capacity legal status. 2. Routine unit precautions. 3. Comfort medications ordered for as needed treatment of constipation, heartburn, diarrhea, and mild pain. 4. Medications reconciled and non-psychotropic home meds to be restarted. 5. The patient's Paxil and trazodone will be held until she is able to sign informed consents. 6. Benzodiazepine dependence will be treated with a slow taper; Ativan 2 mg every 8 hours scheduled with Ativan 1-2 mg every 4 hours as needed for CIWA scores greater than 8. 7. Patient is refusing opiate pain medication therefore opiate withdrawal symptoms will be treated with clonidine 0.1 mg every 4 hours as needed for withdrawal symptoms to include systolic blood pressure greater than 155, diastolic blood pressure greater than 95, heart rate greater than 100. 8. Patient will participate in the unit programming to include group therapies , milieu therapy and recreational therapies. 9. Hospitalist consulted for further evaluation and treatment of the patient's parkinsonism and chronic pain. 10. Psychiatry consulted for second opinion for Brennan act. 11. Continue to discuss with patient the risks, benefits, side effects and alternative treatments for her parkinsonism and the possibility of using an atypical antipsychotic to treat her psychosis. 12. Discharge planning: Anticipate need for patient to return to an assisted living facility versus specialized nursing facility. Justification for Continued Inpatient Stay: The patient is a 48-year-old female with a history of chronic mental illness as well as physical disabilities to include Parkinson's and dystonias, is admitted under a Brennan act order initiated by emergency department provider due to the patient's acute symptoms of psychosis leading to risks of self-harm through self neglect as evidenced by the patient's elopement from her assisted living facility and refusal to except help in association with paranoid delusions. The patient has thus far been uncooperative with efforts to evaluate per Brennan act protocol therefore she will require continued inpatient stabilization observation and evaluation in order to mitigate the risks of harm to self or others. Her outpatient treatment includes opioid and benzodiazepine treatments at high doses which placed her at high risk of from medication complications therefore her refusal to restart opioids on this admission is an opportunity to reduce these risks. The patient will be treated for opiate withdrawal as well as treatment of her benzodiazepine dependence by a slow taper. (1) Bipolar disorder Qualifiers: Current bipolar episode type: mixed Psychotic features: with psychotic features (2) Parkinsonism Qualifiers: Parkinsonism type: unspecified Qualified Code(s): G20 - Parkinson's disease (3) Chronic pain Qualifiers: Chronic pain type: chronic pain syndrome Qualified Code(s): G89.4 - Chronic pain syndrome
[2018-11-03] MEDS: Carbidopa/Levodopa CR 50/200 MG Tablet PO SCH (17:58)
[2018-11-03] MEDS: Gabapentin 100 MG Capsule PO SCH (17:58)
[2018-11-03] MEDS: Melatonin 5 MG Tablet PO SCH (20:33)
[2018-11-03] MEDS: Famotidine 20 MG Tablet PO SCH (20:34)
[2018-11-03] MEDS ORDERED: traZODone 50 MG Tablet PO SCH (21:00)
[2018-11-03] MEDS: oxyCODONE HCL 20 MG Controlled Release Tablet PO SCH (22:26)
[2018-11-04 08:14] LABS: Hematocrit 42.9 % (35.0-46.0); Hemoglobin 14.4 gm/dL (11.6-15.3); Mean Corpuscular HGB Conc 33.5 % (32.0-36.0); Mean Corpuscular Hemoglobin 32.5 pg (27.0-34.0); Mean Corpuscular Volume 97.1 fL (80.0-100.0); Mean Platelet Volume 8.9 fL (7.0-11.0); Platelet Count 237 th/mm3 (150-450); Red Blood Count 4.43 mil/mm3 (4.00-5.30); Red Cell Distribution Width 13.7 % (11.6-17.2); White Blood Count 11.2 th/mm3 (4.0-11.0)
[2018-11-04] MEDS: Senna/Docusate Sodium 8.6/50 MG Tablet PO SCH ×2 (08:19→21:00)
[2018-11-04] MEDS: Gabapentin 100 MG Capsule PO SCH ×3 (08:20→17:09)
[2018-11-04] MEDS: Carbidopa/Levodopa CR 50/200 MG Tablet PO SCH ×3 (08:20→17:09)
[2018-11-04] MEDS: oxyCODONE HCL 20 MG Controlled Release Tablet PO SCH ×2 (08:21→21:05)
[2018-11-04] MEDS: Polyethylene Glycol 3350 17 GM Packet PO SCH (08:21)
[2018-11-04 08:31] LABS: Anion Gap 6 meq/L (5-15); Blood Urea Nitrogen 6 mg/dL (7-18); Calcium 8.6 mg/dL (8.5-10.1); Carbon Dioxide 26.7 meq/L (21.0-32.0); Chloride 105 meq/L (98-107); Glomerular Filtration Rate Greater Than 89 mL/min (>89); Glucose,Random 87 mg/dL (74-106); Potassium 3.3 meq/L (3.5-5.1); Sodium 138 meq/L (136-145)
--- NOTE | 2018-11-04 10:25 | P.CONPSY ---
Provisional Diagnosis Admission Date: November 02, 2018 13:34 [place].: 1. Unspecified psychosis Rule out psychosis due to substance Rule out psychosis in the setting of affective illness Rule out micro-psychosis in the setting of borderline personality style 2. Unspecified anxiety disorder [place] II.: 1. Borderline personality traits History of Present Illness Service: Psychiatry Consult date: 11/04/18 Requesting Physician: Tye Hinton Reason for Consult: Second opinion for involuntary psychiatric hospitalization Primary Care Provider: UNKNOWN History of Present Illness: From Dr. Hinton's H&P: The patient was seen at bedside on the inpatient medical psych unit today; the patient's mother and maternal aunt were at her bedside and she initially protested efforts to speak with her alone for the psychiatric interview. Patient was uncooperative with psychiatric interview and remained discharge focus, "I want you to discharge me I should not be Brennan acted". Patient was asked if she feels safe to return to her [facility] and she reports "no I won't be going back there." The patient was evasive to questions about her recent elopement from the facility. Attempts were made to normalize the patient's recent reported paranoia as a possible side effect from her treatment with Sinemet but the patient rejected this idea and insists that she has been on Sinemet "a long time and it is finally helping me." Medication reconciliation was discussed with the patient and she confirmed the home medications as listed but she refused to sign informed consent for her psychotropics, "I do not trust the medications you will give me." The patient also refused to restart he oxycodone pain medication despite warnings that this could bring on opiate withdrawal. The patient did acknowledge the need to restart her treatment with Ativan. The patient was asked for permission to invite her mother back into the room to continue the psychiatric interview but she declined at this time. The patient appeared very uncomfortable and distressed therefore it was agreed upon that this psychiatric interview would be completed at a later time. On my examination today, 11/04: Patient seen and examined with nurse. Chart reviewed. Case discussed with nursing staff. Nursing reports patient has exhibited ongoing paranoia and anxiety. I have discussed the purpose of my evaluation with the patient today. On my examination, patient presents as disheveled and anxious. She exhibits choreiform and dyskinetic movements of her face, neck and trunk. She reports that she is in the hospital secondary to "extreme issues. I have to get that fixed." She endorses visual hallucinations the nature of which she is unable to put into words, "I never had them like this before." She reports that she is having trouble distinguishing reality from fantasy. She endorses ongoing paranoia. She also complains of anxiety, chiefly generalized, and affect is dysphoric and anxious. Borderline personality traits are noted. Psychiatric interview is somewhat limited by patient's acute psychiatric distress. I am unable to obtain much in the way of past psychiatric, family, chemical dependency or social history from the patient for the same reason. Patient has previous diagnoses of BPAD and personality disorder. She reports that she follows with a psychiatrist at her assisted living facility. Most recent psychiatric admission was here at [facility] by patient report. I note that the patient was admitted under Dr. Watson in June of [address] Watson. Patient resides at assisted living facility, although she cannot recall the name of this facility. Review of Systems unobtainable due to mental condition PMFSH - History History Provided By: Patient - Medical History Medical History: Medical History (Last Reviewed 11/03/18 @ 16:13 by Freddie Shepherd MD) Anxiety Bipolar II disorder Delusional disorder Dystonia GERD (gastroesophageal reflux disease) Hypertension Insomnia Parkinson disease Polyneuropathy Rhabdomyolysis Vitamin deficiency - Family History Family History: Family History Other Hypertension - Tobacco History Second Hand Smoke Exposure: Yes Tobacco Use In Past 30 Days: Yes Smoking Status: Refused to answer Tobacco Type: Cigarettes - Alcohol History How Often Do You Have a Drink Containing Alcohol: Unable to Obtain - Substance Use History Substance History: Unable to Obtain - Travel History Recent Travel in the [place] Within the Last 8 Weeks: No Recent Travel Out of the Country Within the Last 8 Weeks: No - Immunization History Tetanus Immunization: Unsure Hx Influenza Vaccine This Season: No Medications and Allergies Active Medications: Active Medications Al Hydrox/Mg Hydrox/Simethicone (Mag-Al Plus Susp Liq) 30 ml PO Q6H PRN PRN Reason: DYSPEPSIA Al Hydroxide/Mg Hydroxide (Milk Of Magnesia Liq) 30 ml PO Q12H PRN PRN Reason: Mild Constipation Baclofen (Lioresal) 20 mg PO Q8HR [facility] Last Admin: 11/03/18 22:28 Dose: 20 mg Bisacodyl (Dulcolax Supp) 10 mg RECTAL DAILY PRN PRN Reason: SEVERE CONSITIPATION Carbidopa/Levodopa (Sinemet Cr 50/200 Mg) 1 tab PO TID [facility] Last Admin: 11/04/18 08:20 Dose: 1 tab Clonidine HCl (Catapres) 0.1 mg PO Q4H PRN PRN Reason: FOR SYST BP>155, DIAST>90 Last Admin: 11/04/18 08:21 Dose: 0.1 mg Famotidine (Pepcid) 20 mg PO [facility] Last Admin: 11/03/18 20:34 Dose: 20 mg Flumazenil (Romazecon Inj) 0.2 mg IV.PUSH Q1M PRN PRN Reason: OVERSEDATION Gabapentin (Neurontin) 200 mg PO TID [facility] Last Admin: 11/04/18 08:20 Dose: 200 mg Lorazepam (Ativan) 1 mg PO Q4H PRN PRN Reason: for CIWA 8-10 Last Admin: 11/03/18 00:13 Dose: 1 mg Lorazepam (Ativan Inj) 2 mg IV.PUSH Q2H PRN PRN Reason: for CIWA 11-14 Lorazepam (Ativan Inj) 2 mg IV.PUSH Q1H PRN PRN Reason: for CIWA 15-20 Lorazepam (Ativan Inj) 2 mg IV.PUSH Q15M PRN PRN Reason: for CIWA > 20 Lorazepam (Ativan Inj) 1 mg IV.PUSH Q4H PRN PRN Reason: for CIWA 8-10 Lorazepam (Ativan) 2 mg PO Q8H [facility] Last Admin: 11/03/18 22:28 Dose: 2 mg Lorazepam (Ativan) 2 mg PO Q4H PRN PRN Reason: for CIWA 11-14 Melatonin (Melatonin) 5 mg PO [facility] Last Admin: 11/03/18 20:33 Dose: 5 mg Miscellaneous (Pill Splitter) 1 each OTHER UNSCH PRN PRN Reason: SEE LABEL COMMENTS Naloxone HCl (Narcan Inj) 0.4 mg IV.PUSH ONCE PRN PRN Reason: SEDATION Nicotine (Habitrol 21 Mg Patch.24 Hr) 1 patch T-DERMAL DAILY [facility] Last Admin: 11/04/18 08:22 Dose: Not Given Ondansetron HCl (Zofran Odt) 4 mg PO Q4H PRN PRN Reason: NAUSEA Oxycodone HCl (Oxycontin Cr) 20 mg PO Q12HR [facility] Last Admin: 11/04/18 08:21 Dose: 20 mg Paroxetine HCl (Paxil) 30 mg PO HS [facility] Last Admin: 11/03/18 20:34 Dose: 30 mg Polyethylene Glycol (Miralax) 17 gm PO DAILY [facility] Last Admin: 11/04/18 08:21 Dose: Not Given Potassium Chloride (K-Dur) 40 meq PO ONCE ONE Stop: 11/04/18 11:01 Senna/Docusate Sodium (Maye-Colace) 1 tab PO BID [facility] Last Admin: 11/04/18 08:19 Dose: 1 tab Sennosides (Senokot) 17.2 mg PO Q12H PRN PRN Reason: Moderate Constipation Tizanidine HCl (Zanaflex) 2 mg PO TID [facility] Last Admin: 11/04/18 08:19 Dose: 2 mg Trazodone HCl (Desyrel) 50 mg PO [facility] Last Admin: 11/03/18 20:33 Dose: 50 mg Trihexyphenidyl HCl (Artane) 2 mg PO TID [facility] Last Admin: 11/04/18 08:21 Dose: 2 mg Allergies Allergy/AdvReac Type Severity Reaction Status Date / Time diclofenac AdvReac Ulcers Verified 11/02/18 10:44 etodolac AdvReac Ulcers Verified 11/02/18 10:44 flurbiprofen AdvReac Ulcers Verified 11/02/18 10:44 ibuprofen AdvReac Ulcers Verified 11/02/18 10:44 indomethacin AdvReac Ulcers Verified 11/02/18 10:44 Home Medications Medication Instructions Recorded Confirmed Type Citroma 11/02/18 11/02/18 History Dulcolax Stool Softener (dss) 11/02/18 History Paxil 11/02/18 11/02/18 History baclofen 20 mg PO QID 11/02/18 11/02/18 History baclofen 20 mg PO QID 11/02/18 11/02/18 History carbidopa-levodopa [Sinemet CR] 1 tab PO Q8H 11/02/18 11/02/18 History famotidine [Pepcid] 20 mg PO DAILY 11/02/18 11/02/18 History gabapentin See Label Instructions .ROUTE 11/02/18 11/02/18 History .COMPLEX lorazepam [Ativan] 2 11/02/18 History magnesium hydroxide [Milk of 15 ml PO DAILY PRN 11/02/18 11/02/18 History Magnesia] melatonin 11/02/18 History oxycodone [OxyContin] 11/02/18 11/02/18 History tizanidine 2 mg PO TID PRN 11/02/18 11/02/18 History trazodone 11/02/18 History Exam Vital signs: Vital Signs 11/03/18 17:23 11/04/18 06:00 11/04/18 07:19 Temperature 97.1 F L 98.8 F Pulse Rate 103 H 95 H Respiratory Rate 15 20 Blood Pressure 146/92 H 161/71 H Pulse Oximetry 97 97 Intake & Output 11/03/18 11/04/18 11/04/18 18:59 06:59 18:59 Intake Total 0 / 0 Balance 0 / 0 Intake: Oral 0 / 0 Other: # Voids 3 4 Narrative: Physical examination completed by hospitalist managing consultant clinical professor. On my examination today, the patient exhibits choreiform and dyskinetic movements as noted above. No other motor abnormalities noted. Labs and vital signs reviewed: Laboratory Tests 11/02/18 11/02/18 11/02/18 10:40 10:40 12:35 WBC 6.1 RBC 4.43 Hgb 14.7 Hct 43.9 MCV 99.1 MCH 33.1 MCHC 33.4 RDW 14.3 Plt Count 223 MPV 8.9 Neut % (Auto) 55.3 Lymph % (Auto) 35.9 [place] % (Auto) 6.2 Eos % (Auto) 1.7 Baso % (Auto) 0.9 Neut # (Auto) 3.4 Lymph # (Auto) 2.2 [place] # (Auto) 0.4 Eos # (Auto) 0.1 Baso # (Auto) 0.1 WBC Differential . Differential Comment Auto diff final Sodium 140 Potassium 3.6 Chloride 105 Carbon Dioxide 30.8 Anion Gap 4 L BUN 8 Creatinine 0.73 Estimated GFR 85 L Random Glucose 97 Hemoglobin A1c Calcium 8.4 L Magnesium 1.9 Total Bilirubin 0.4 AST 20 ALT 6 L Alkaline Phosphatase 128 H Total Protein 7.0 Albumin 3.4 Triglycerides Cholesterol LDL Cholesterol, Calc HDL Cholesterol Cholesterol/HDL Ratio TSH 1.220 Urine Color Urine Clarity Urine pH Ur Specific [place] Urine Protein Urine Glucose (UA) Urine Ketones Urine Occult Blood Urine Nitrate Urine Bilirubin Urine Urobilinogen Ur Leukocyte Esterase Urine RBC Urine WBC Ur Squamous Epith Cells Urine Bacteria Urine Mucus Micro UA Comment Ur Microscopic Review Urine Culture Comments Urine Opiates Screen Neg Ur Barbiturates Screen Neg Ur Amphetamines Screen Neg U Benzodiazepines Scrn Neg Urine Cocaine Screen Neg U Cannabinoids Screen Neg Serum Alcohol Less than 3 11/02/18 11/03/18 11/03/18 12:35 08:19 08:19 WBC RBC Hgb Hct MCV MCH MCHC RDW Plt Count MPV Neut % (Auto) Lymph % (Auto) [place] % (Auto) Eos % (Auto) Baso % (Auto) Neut # (Auto) Lymph # (Auto) [place] # (Auto) Eos # (Auto) Baso # (Auto) WBC Differential Differential Comment Sodium 139 Potassium 3.3 L Chloride 105 Carbon Dioxide 27.2 Anion Gap 7 BUN 7 Creatinine 0.51 Estimated GFR Greater than 89 Random Glucose 100 Hemoglobin A1c 5.2 Calcium 8.4 L Magnesium Total Bilirubin AST ALT Alkaline Phosphatase Total Protein Albumin Triglycerides 61 Cholesterol 126 LDL Cholesterol, Calc 79 HDL Cholesterol 34.4 L Cholesterol/HDL Ratio 3.66 TSH Urine Color Yellow Urine Clarity Clear Urine pH 6.0 Ur Specific [place] 1.008 Urine Protein Negative Urine Glucose (UA) Negative Urine Ketones Trace H Urine Occult Blood Small H Urine Nitrate Negative Urine Bilirubin Negative Urine Urobilinogen Less than 2 Ur Leukocyte Esterase Small H Urine RBC 1 Urine WBC 5 Ur Squamous Epith Cells 1 Urine Bacteria Rare H Urine Mucus Few H Micro UA Comment Culture not ind Ur Microscopic Review Not Reportable Urine Culture Comments Culture not ind Urine Opiates Screen Ur Barbiturates Screen Ur Amphetamines Screen U Benzodiazepines Scrn Urine Cocaine Screen U Cannabinoids Screen Serum Alcohol 11/04/18 11/04/18 07:06 07:06 WBC 11.2 H RBC 4.43 Hgb 14.4 Hct 42.9 MCV 97.1 MCH 32.5 MCHC 33.5 RDW 13.7 Plt Count 237 MPV 8.9 Neut % (Auto) Lymph % (Auto) [place] % (Auto) Eos % (Auto) Baso % (Auto) Neut # (Auto) Lymph # (Auto) [place] # (Auto) Eos # (Auto) Baso # (Auto) WBC Differential Differential Comment Sodium 138 Potassium 3.3 L Chloride 105 Carbon Dioxide 26.7 Anion Gap 6 BUN 6 L Creatinine 0.54 Estimated GFR Greater than 89 Random Glucose 87 Hemoglobin A1c Calcium 8.6 Magnesium Total Bilirubin AST ALT Alkaline Phosphatase Total Protein Albumin Triglycerides Cholesterol LDL Cholesterol, Calc HDL Cholesterol Cholesterol/HDL Ratio TSH Urine Color Urine Clarity Urine pH Ur Specific [place] Urine Protein Urine Glucose (UA) Urine Ketones Urine Occult Blood Urine Nitrate Urine Bilirubin Urine Urobilinogen Ur Leukocyte Esterase Urine RBC Urine WBC Ur Squamous Epith Cells Urine Bacteria Urine Mucus Micro UA Comment Ur Microscopic Review Urine Culture Comments Urine Opiates Screen Ur Barbiturates Screen Ur Amphetamines Screen U Benzodiazepines Scrn Urine Cocaine Screen U Cannabinoids Screen Serum Alcohol Mental Status Examination Appearance: Disheveled Consciousness: Alert Orientation: Person, Place (At least) Motor Activity: Other (Motor abnormalities as noted above) Speech: Hesitant Language: Adequate Fund of Knowledge: Adequate Attention and Concentration: Inadequate Memory: Unremarkable Mood: Anxious, Irritable Affect: Irritable, Anxious Thought Process & Associations: Circumstantial Thought Content: Delusional Hallucination Type: Visual Delusion Type: Paranoid Suicidal Ideation: No Suicidal Plan: No Suicidal Intention: No Homicidal Ideation: No Homicidal Plan: No Homicidal Intention: No Insight: Poor Judgment: Poor Assessment and Plan - Assessment (1) Unspecified psychosis Code(s): F29 - Unspecified psychosis not due to a substance or known physiological condition Status: Acute (2) Anxiety disorder, unspecified Code(s): F41.9 - Anxiety disorder, unspecified Status: Chronic - Plan Plan: Given the circumstances of the patient's presentation here and her presentation on my examination today, I concur with Dr. Hinton that the patient meets criteria for involuntary psychiatric hospitalization. Criteria include impairment in self-care. I have completed the second opinion paperwork. Further care as per Dr. Hniton. Thank you very much for this consultation. Signing off. Justification for Continued Inpatient Stay: Per Dr. Hinton.
--- NOTE | 2018-11-04 13:35 | P.PNIM ---
Subjective Interval history: Follow up on patient with Parkinson's, dystonia, chronic pain , bipolar disorder. Patient seen and examined. Patient complaining of left sided rib pain since her fall. She says it hurts when she takes a deep breath. She says she is weak. She denies any fever or chills. She denies any chest pain or dyspnea. She denies any N/V or abdominal pain. Physical Exam Vital signs: Last Vital Signs Temp 98.8 F 11/04/18 06:00 Pulse 95 H 11/04/18 06:00 Resp 20 11/04/18 06:00 BP 161/71 H 11/04/18 07:19 Pulse Ox 97 11/04/18 06:00 Intake & Output 11/02/18 11/03/18 11/04/18 11/05/18 06:59 06:59 06:59 06:59 Intake Total 480 / 480 0 / 0 Balance 480 / 480 0 / 0 Weight 54.6 kg Narrative: GENERAL: Well developed thin, generally weak, deconditioned from Parkinson's, female, INAD. Awake and alert. SKIN: Warm and dry. No generalized rash. HEAD: Atraumatic. Normocephalic. EYES: Pupils equal, round, reactive to light. No scleral icterus. No injection or drainage. ENT: No nasal bleeding or discharge. Moist mucous membranes. Nonerythematous oropharynx. NECK: Trachea midline. CARDIOVASCULAR: Tachycardia. No murmur, no gallops, no rubs. RESPIRATORY: Clear and equal to auscultation bilaterally. No crackles, no wheezes. No accessory muscle use. GASTROINTESTINAL: Abdomen soft, non-tender, nondistended, normal active bowel sounds. MUSCULOSKELETAL: Moderate increased muscle tone of right sternocleidomastoid and right neck musculature. No obvious deformities. No edema. +tenderness to palpation over left rib cage. Skin intact, no rash noted. No ecchymosis. NEUROLOGICAL: Awake and alert. No obvious cranial nerve deficits. Motor grossly within normal limits, no resting tremor currently. Normal speech. PSYCHIATRIC: Calm and cooperative. Results Labs CBC & Chem 7: 11/04/18 07:06 11/04/18 07:06 Assessment and Plan (1) Bipolar disorder: Code(s): F31.9 - Bipolar disorder, unspecified Status: Acute (2) Parkinsonism: Code(s): G20 - Parkinson's disease Status: Acute (3) Chronic pain: Code(s): G89.29 - Other chronic pain Status: Acute (4) Benzodiazepine dependence: Code(s): F13.20 - Sedative, hypnotic or anxiolytic dependence, uncomplicated Status: Acute (5) Opiate dependence: Code(s): F11.20 - Opioid dependence, uncomplicated Status: Acute (6) Anxiety disorder, unspecified: Code(s): F41.9 - Anxiety disorder, unspecified Status: Chronic (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 Bipolar disorder with anxiety Borderline personality disorder Delusional disorder UDS neg TSH WNL -management per psychiatry Chronic pain Cervical dystonia Parkinson's Patient allegedly takes 30 mg of OxyContin every 12 hours, her pharmacy only list 20 and 40 mg pills -Started on 20 mg of OxyContin every 12 hours, continue -patient on Baclofen, Ativan, Gabapentin, Zanaflex -continue on Sinemet -Narcan ordered as PRN option in case oversedation occurs -PT/OT eval/tx Left sided rib pain s/p fall -obtain rib xray to r/o rib fractures Hypertensive Tachycardic possibly related to left sided rib pain and/or anxiety no reported hx of HTN -clonidine prn with parameters -continue to monitor BP and will initiate scheduled antihypertensive treatment if indicated Hypokalemia Potassium still 3.3 today despite po repletion Mag 1.9 -po K repletion ordered -repeat BMP in am DVT prophylaxis -patient is ambulatory Progress Note: Quality VTE Deep Vein Thrombosis/Pulmonary Embolism Present on Admission: No _ (1) Bipolar disorder Qualifiers: Active/Remission status: Current bipolar episode type: mixed Current episode severity: Psychotic features: with psychotic features Most recent bipolar episode type: (2) Parkinsonism Qualifiers: Parkinsonism type: unspecified Secondary Parkinsonism type: Qualified Code( s): G20 - Parkinson's disease (3) Chronic pain Qualifiers: Chronic pain type: chronic pain syndrome Qualified Code(s): G89.4 - Chronic pain syndrome (4) Opiate dependence Qualifiers: Substance use status: Complication of substance-induced condition: (5) Anxiety disorder, unspecified Qualifiers: Anxiety disorder type: Phobia type:
--- NOTE | 2018-11-04 15:04 | P.PNPSY ---
Subjective Chief Complaint: "Nothing matters because they are going to kill me" Remarks: Patient seen for follow-up, chart reviewed, patient discussed with nursing staff ; we reviewed the patient's mood, thoughts, and behaviors from overnight and this morning. Nurse reports that the patient remains anxious and demanding treatment for anxiety and pain. She denies any auditory or visual hallucinations. The patient was seen at bedside prior to lunch being served; she was less guarded with examiner today but remains minimally cooperative with questioning and remains somatically focused. She was very restless making coordinated movements with her upper body extremities but no rhythmic torticollis noted. Her eyes were closed and she reported difficulty opening her eyelids and reports she has been referred for surgical correction. The patient was asked if she can get herself up and out of bed and she did demonstrate the ability to do so but she complained "it is very exhausting" and she returned to lying down. She continues to report having thoughts that people are trying to kill her and she denies that she has ever had "these paranoid thoughts" in the past. We once again discussed alternative treatments for her Parkinson's and psychosis but she logically explained that she has been working for many years to get on a medication regimen that she is satisfied with and most recently she has been satisfied with her current meds and she is expecting further follow-up with the [facility] and would not want her meds changed before that. The patient did express concern for the decrease in her Ativan dosing but was reassured that Ativan withdrawal symptoms would be covered by as needed doses. She complains of severe pain but expressed satisfaction with current pain medication. The patient expressed a desire to be discharged as soon as possible but acknowledges that it may take a few days for discharge planning to find her a new assisted living facility. Collateral information from the unit social work faculty member indicates that the patient's current physical condition is a significant decline since she was last admitted in 2017. The patient's complaints of weakness and exhaustion as well as difficulty keeping her eyes open seem to be a new complaint. According to the social work faculty member, the patient's complaint of paranoia is not new and is the usual presenting symptoms. Mental Status Examination Appearance: Disheveled Consciousness: Alert Orientation: Person, Place (At least) Motor Activity: Other (Motor abnormalities as noted above) Speech: Hesitant Language: Adequate Fund of Knowledge: Adequate Attention and Concentration: Inadequate Memory: Unremarkable Mood: Anxious Affect: Anxious Thought Process & Associations: Circumstantial Thought Content: Delusional Hallucination Type: None Delusion Type: Paranoid Suicidal Ideation: No Suicidal Plan: No Suicidal Intention: No Homicidal Ideation: No Homicidal Plan: No Homicidal Intention: No Insight: Fair Judgment: Poor Assessment and Plan - Assessment (1) Unspecified psychosis Code(s): F29 - Unspecified psychosis not due to a substance or known physiological condition Status: Acute (2) Anxiety disorder, unspecified Code(s): F41.9 - Anxiety disorder, unspecified Status: Chronic - Plan Plan: 11/03/2018 initial assessment and plan: The patient is a 48-year-old female with a history of chronic mental illness as well as physical disabilities to include Parkinson's and dystonias, is admitted under a Brennan act order initiated by emergency department provider due to the patient's acute symptoms of psychosis leading to risks of self-harm through self neglect as evidenced by the patient's elopement from her assisted living facility and refusal to except help in association with paranoid delusions. The patient has thus far been uncooperative with efforts to evaluate per Brennan act protocol therefore she will require continued inpatient stabilization observation and evaluation in order to mitigate the risks of harm to self or others. Her outpatient treatment includes opioid and benzodiazepine treatments at high doses which placed her at high risk of from medication complications therefore her refusal to restart opioids on this admission is an opportunity to reduce these risks. The patient will be treated for opiate withdrawal as well as treatment of her benzodiazepine dependence by a slow taper. 1. Continue with admission to inpatient psychiatry at [facility]; involuntary/lacking capacity legal status. 2. Routine unit precautions. 3. Comfort medications ordered for as needed treatment of constipation, heartburn, diarrhea, and mild pain. 4. Medications reconciled and non-psychotropic home meds to be restarted. 5. The patient's Paxil and trazodone will be held until she is able to sign informed consents. 6. Benzodiazepine dependence will be treated with a slow taper; Ativan 2 mg every 8 hours scheduled with Ativan 1-2 mg every 4 hours as needed for CIWA scores greater than 8. 7. Patient is refusing opiate pain medication therefore opiate withdrawal symptoms will be treated with clonidine 0.1 mg every 4 hours as needed for withdrawal symptoms to include systolic blood pressure greater than 155, diastolic blood pressure greater than 95, heart rate greater than 100. 8. Patient will participate in the unit programming to include group therapies , milieu therapy and recreational therapies. 9. Hospitalist consulted for further evaluation and treatment of the patient's parkinsonism and chronic pain. 10. Psychiatry consulted for second opinion for Brennan act. 11. Continue to discuss with patient the risks, benefits, side effects and alternative treatments for her parkinsonism and the possibility of using an atypical antipsychotic to treat her psychosis. 12. Discharge planning: Anticipate need for patient to return to an assisted living facility versus specialized nursing facility. 11/04/2018: Fair initial response to treatment, the patient is less guarded and is now cooperating with the restart of her home medications. She seems to have tolerated the decreased dose of Sinemet as there is no evidence of worsening bradykinesia or dystonias. She is also tolerated the decrease dosing of her pain medications and is not asking for an increase. The patient is struggling to tolerate the decrease of her anxiolytic medication but has thus far accepted the plan for tapering. She continues to decline recommendations to start adjunctive treatment with an atypical antipsychotic for treatment of drug- induced psychosis, but her reasoning is rational therefore guardian advocate for medical decision making will not be pursued at this time. Continue current inpatient treatment plan and involuntary status with capacity for competent medical decision-making. Continue with Sinemet at a reduced dose of 3 times per day and observe for worsening dystonia or parkinsonism. Continue with reduced dose of Ativan 2 mg every 8 hours with adjunctive treatment for potential benzodiazepine withdrawal with seizure protocol and Ativan 1-2 mg every 4 hours as needed. The patient remains a high risk of complications from the combination of muscle relaxers sedative-hypnotics and pain relievers therefore it is recommended that her reduced dose of opiate be continued rather than increased back to previous outpatient doses. Continue to work on developing therapeutic trust and continue discussions of risks benefits side effects and alternative treatments of her anxiety psychosis and parkinsonism with the goal of restarting an atypical antipsychotic that should hopefully control the psychosis as well as help reduce complaints of anxiety and insomnia. Discharge planning: Unit social work faculty member working with family and patient to find alternative assisted living facility. Justification for Continued Inpatient Stay: Patient remains an elevated risk for self-harm by self neglect caused by her severe paranoia and will require further inpatient stabilization and preparation of a safe discharge plan. Moving patient to a less restrictive environment at this time may result in decompensation.
--- NOTE | 2018-11-04 16:53 | XR ---
EXAM DATE: 11/04/2018 4:38 PM EST AGE/SEX: 48 years / Female INDICATIONS: Left rib pain after 2 falls. CLINICAL DATA: This is the patient's initial encounter. Patient reports that signs and symptoms have been present for 4 - 6 days and indicates a pain score of 6/10. MEDICAL/SURGICAL HISTORY: None. None. COMPARISON: None. FINDINGS: There is no evidence of displaced fracture. No destructive lesions or areas of periosteal thickening are seen. Expiratory view of the chest is negative for pneumothorax. The mediastinal structures ar e midline. CONCLUSION: Negative exam with no visualized fracture. Electronically signed by: Florin Henderson MD Board Certified Radiologist 11/04/2018 4:52 PM EST
[2018-11-04] MEDS: Famotidine 20 MG Tablet PO SCH (21:00)
[2018-11-04] MEDS: Melatonin 5 MG Tablet PO SCH (21:00)
[2018-11-04] MEDS: traZODone 50 MG Tablet PO SCH (21:53)
[2018-11-05] MEDS: Carbidopa/Levodopa CR 50/200 MG Tablet PO SCH ×3 (08:53→17:33)
[2018-11-05] MEDS: Gabapentin 100 MG Capsule PO SCH ×3 (08:53→17:33)
[2018-11-05] MEDS: Polyethylene Glycol 3350 17 GM Packet PO SCH (08:53)
[2018-11-05] MEDS: Senna/Docusate Sodium 8.6/50 MG Tablet PO SCH ×2 (08:53→20:38)
[2018-11-05] MEDS: oxyCODONE HCL 20 MG Controlled Release Tablet PO SCH ×2 (08:53→20:36)
[2018-11-05 10:31] LABS: Anion Gap 6 meq/L (5-15); Blood Urea Nitrogen 8 mg/dL (7-18); Calcium 8.1 mg/dL (8.5-10.1); Carbon Dioxide 27.4 meq/L (21.0-32.0); Chloride 107 meq/L (98-107); Glomerular Filtration Rate Greater Than 89 mL/min (>89); Glucose,Random 118 mg/dL (74-106); Potassium 3.9 meq/L (3.5-5.1); Sodium 140 meq/L (136-145)
--- NOTE | 2018-11-05 13:49 | P.PNIM ---
Subjective Interval history: Follow up on patient with Parkinson's, dystonia, chronic pain , bipolar disorder. Patient seen and examined. Patient complaining of left sided chest pain "over her heart" after participating with therapy yesterday. She says the difference in the left sided rib pain she reported yesterday. She states it is reproducible with touch. She denies any associated diaphoresis, palpitations, nausea, vomiting or shortness of breath. Patient states that she took a hard fall on her left side is not sure if she hit her chest or not. She is asking for increase in her pain medication as she has severe pain that wakes her up at night around 2 or 3:00 in the morning and she is unable to go back to sleep. Physical Exam Vital signs: Last Vital Signs Temp 97.5 F L 11/05/18 06:00 Pulse 100 H 11/05/18 06:00 Resp 18 11/05/18 06:00 BP 161/81 H 11/05/18 06:00 Pulse Ox 96 11/04/18 19:00 Intake & Output 11/03/18 11/04/18 11/05/18 11/06/18 06:59 06:59 06:59 06:59 Intake Total 480 / 480 0 / 0 1320 / 1320 Balance 480 / 480 0 / 0 1320 / 1320 Weight 54.6 kg Narrative: GENERAL: Well developed thin, generally weak, deconditioned from Parkinson's, female, INAD. Awake and alert. SKIN: Warm and dry. No generalized rash. +small laceration repair over left forehead/temporal area, sutures in place, appears to be healing well. HEENT: Normocephalic. Pupils equal, round, reactive to light. No scleral icterus. No injection or drainage. No nasal bleeding or discharge. Moist mucous membranes. NECK: Trachea midline. +cervical dystonia. CARDIOVASCULAR: Tachycardia. No murmur, no gallops, no rubs. Anterior chest wall tender to palpation. RESPIRATORY: Clear and equal to auscultation bilaterally. No crackles, no wheezes. No accessory muscle use. GASTROINTESTINAL: Abdomen soft, non-tender, nondistended, normal active bowel sounds. MUSCULOSKELETAL: No edema noted. Moderate increased muscle tone of right sternocleidomastoid and right neck musculature. +tenderness to palpation over left rib cage. Skin intact, no rash noted. No ecchymosis. NEUROLOGICAL: Awake and alert. No obvious cranial nerve deficits. Motor grossly within normal limits, no resting tremor currently. Normal speech. PSYCHIATRIC: Calm and cooperative. Results Labs CBC & Chem 7: 11/04/18 07:06 11/05/18 09:42 Imaging Imaging: Impressions Ribs X-Ray 11/04/18 00:00 CONCLUSION: Negative exam with no visualized fracture. Assessment and Plan (1) Unspecified psychosis: Code(s): F29 - Unspecified psychosis not due to a substance or known physiological condition Status: Acute (2) Anxiety disorder, unspecified: Code(s): F41.9 - Anxiety disorder, unspecified Status: Chronic Plan 48-year-old female with a history of Parkinson's, dystonia, chronic pain admitted to med psych for complication needs of bipolar disorder. Bipolar disorder with anxiety Borderline personality disorder Delusional disorder UDS neg TSH WNL -management per psychiatry Chronic pain Cervical dystonia Parkinson's Eforsce verified narcotic prescriptions -patient takes combination of oxycodone 20 mg 6 tabs/day and OxyContin 30 mg 1 tab BID -Started on 20 mg of OxyContin every 12 hours, continue. Will add Oxycodone 10mg q8h prn breakthrough pain -patient on Baclofen, Ativan, Gabapentin, Zanaflex -continue on Sinemet -Narcan ordered as PRN option in case oversedation occurs -continue with PT/OT Left sided rib pain s/p fall -obtain rib xray to r/o rib fractures Episodes of hypertension and tachycardia possibly related to left sided chest/rib pain and/or anxiety no reported hx of HTN -clonidine prn with parameters -continue to monitor BP and will initiate scheduled antihypertensive treatment if indicated Chest pain, atypical reproducible on exam, suspect MSK etiology -given hx of fall and possible chest contusion, we will obtain echocardiogram -obtain troponin and EKG -monitor Hypokalemia -resolved s/p repletion DVT prophylaxis -patient is ambulatory Progress Note: Quality VTE Deep Vein Thrombosis/Pulmonary Embolism Present on Admission: No _ (1) Unspecified psychosis Qualifiers: Psychosis type: Schizoaffective disorder type: Schizophrenia type: (2) Anxiety disorder, unspecified Qualifiers: Anxiety disorder type: Phobia type:
--- NOTE | 2018-11-05 14:54 | P.PNPSY ---
Subjective Chief Complaint: Follow-up for paranoid delusions Remarks: Patient seen for follow-up, chart reviewed, patient discussed with nursing staff ; we reviewed the patient's mood, thoughts, and behaviors from overnight and this morning. Nursing reports that the patient has remained seclusive to her room and not attending groups. She is quite cooperative. She is able to get herself up and out of bed and has come out to request snacks by way of wheelchair. Patient was seen at bedside after lunch. Her condition looks improved, her eyelids remained open during conversation and there were not any hyperkinetic or restless movements of upper extremities or lower extremities. She did appear mildly somnolent. She did complain of left-sided pain from a fall and believes that her heart is bruised. She complains of adequate pain control and has asked that her OxyContin extended release be converted back to instant release so she can get it more often. She is not asking for an increase of the dose. Patient did not complain about her anxiety control today. Patient reports that she is no longer paranoid that someone in the hospital is going to harm her and she is motivated to continue her inpatient stabilization and is willing to sign herself involuntarily. Mental Status Examination Appearance: Disheveled Consciousness: Alert, Somnolent Orientation: x4 Motor Activity: Other (Motor abnormalities as noted above) Speech: Unremarkable Language: Adequate Fund of Knowledge: Adequate Attention and Concentration: Adequate Memory: Unremarkable Mood: Anxious Affect: Anxious Thought Process & Associations: Logical, Goal directed Thought Content: Appropriate Hallucination Type: None Delusion Type: Paranoid Suicidal Ideation: No Suicidal Plan: No Suicidal Intention: No Homicidal Ideation: No Homicidal Plan: No Homicidal Intention: No Insight: Fair Judgment: Impulsive Assessment and Plan - Assessment (1) Unspecified psychosis Code(s): F29 - Unspecified psychosis not due to a substance or known physiological condition Status: Acute (2) Anxiety disorder, unspecified Code(s): F41.9 - Anxiety disorder, unspecified Status: Chronic - Plan Plan: 11/03/2018 initial assessment and plan: The patient is a 48-year-old female with a history of chronic mental illness as well as physical disabilities to include Parkinson's and dystonias, is admitted under a Brennan act order initiated by emergency department provider due to the patient's acute symptoms of psychosis leading to risks of self-harm through self neglect as evidenced by the patient's elopement from her assisted living facility and refusal to except help in association with paranoid delusions. The patient has thus far been uncooperative with efforts to evaluate per Brennan act protocol therefore she will require continued inpatient stabilization observation and evaluation in order to mitigate the risks of harm to self or others. Her outpatient treatment includes opioid and benzodiazepine treatments at high doses which placed her at high risk of from medication complications therefore her refusal to restart opioids on this admission is an opportunity to reduce these risks. The patient will be treated for opiate withdrawal as well as treatment of her benzodiazepine dependence by a slow taper. 1. Continue with admission to inpatient psychiatry at [facility]; involuntary/lacking capacity legal status. 2. Routine unit precautions. 3. Comfort medications ordered for as needed treatment of constipation, heartburn, diarrhea, and mild pain. 4. Medications reconciled and non-psychotropic home meds to be restarted. 5. The patient's Paxil and trazodone will be held until she is able to sign informed consents. 6. Benzodiazepine dependence will be treated with a slow taper; Ativan 2 mg every 8 hours scheduled with Ativan 1-2 mg every 4 hours as needed for CIWA scores greater than 8. 7. Patient is refusing opiate pain medication therefore opiate withdrawal symptoms will be treated with clonidine 0.1 mg every 4 hours as needed for withdrawal symptoms to include systolic blood pressure greater than 155, diastolic blood pressure greater than 95, heart rate greater than 100. 8. Patient will participate in the unit programming to include group therapies , milieu therapy and recreational therapies. 9. Hospitalist consulted for further evaluation and treatment of the patient's parkinsonism and chronic pain. 10. Psychiatry consulted for second opinion for Brennan act. 11. Continue to discuss with patient the risks, benefits, side effects and alternative treatments for her parkinsonism and the possibility of using an atypical antipsychotic to treat her psychosis. 12. Discharge planning: Anticipate need for patient to return to an assisted living facility versus specialized nursing facility. 11/04/2018: Fair initial response to treatment, the patient is less guarded and is now cooperating with the restart of her home medications. She seems to have tolerated the decreased dose of Sinemet as there is no evidence of worsening bradykinesia or dystonias. She is also tolerated the decrease dosing of her pain medications and is not asking for an increase. The patient is struggling to tolerate the decrease of her anxiolytic medication but has thus far accepted the plan for tapering. She continues to decline recommendations to start adjunctive treatment with an atypical antipsychotic for treatment of drug- induced psychosis, but her reasoning is rational therefore guardian advocate for medical decision making will not be pursued at this time. Continue current inpatient treatment plan and involuntary status with capacity for competent medical decision-making. Continue with Sinemet at a reduced dose of 3 times per day and observe for worsening dystonia or parkinsonism. Continue with reduced dose of Ativan 2 mg every 8 hours with adjunctive treatment for potential benzodiazepine withdrawal with seizure protocol and Ativan 1-2 mg every 4 hours as needed. The patient remains a high risk of complications from the combination of muscle relaxers sedative-hypnotics and pain relievers therefore it is recommended that her reduced dose of opiate be continued rather than increased back to previous outpatient doses. Continue to work on developing therapeutic trust and continue discussions of risks benefits side effects and alternative treatments of her anxiety psychosis and parkinsonism with the goal of restarting an atypical antipsychotic that should hopefully control the psychosis as well as help reduce complaints of anxiety and insomnia. Discharge planning: Unit social media campaign manager working with family and patient to find alternative assisted living facility. 11/05/2018: Good response to treatment, the patient is reporting a remission in the paranoid believes she had about being hurt in the hospital. She is now expressing insight that she needs inpatient stabilization prior to return being to assisted living facility. Her strength seems to have improved as evidenced by her ability to get up and out of bed by herself and use a wheelchair, and her eyelids are able to stay open during conversation. There is no evidence of worsening dystonia or EPS since her Sinemet was decreased. Patient seems satisfied with the current dosing of Ativan which was also decreased by more than 50%. Continue inpatient stabilization and treatment and convert to voluntary status. The patient remains a high risk of complications from the combination of muscle relaxers sedative-hypnotics and pain relievers therefore it is recommended that her reduced dose of opiate be continued rather than increased back to previous outpatient doses. Continue to work on developing therapeutic trust and continue discussions of risks benefits side effects and alternative treatments of her anxiety psychosis and parkinsonism with the goal of restarting an atypical antipsychotic that should hopefully control the psychosis as well as help reduce complaints of anxiety and insomnia. Discharge planning: Unit social media campaign manager working with family and patient to find alternative assisted living facility. Justification for Continued Inpatient Stay: Patient remains an elevated risk for self-harm by way of self neglect and reckless behavior caused by paranoia and will require further inpatient stabilization and preparation of a safe discharge plan. Moving patient to a less restrictive environment at this time may result in decompensation.
--- NOTE | 2018-11-05 17:28 | ECHRPT ---
Indication: chest pain CONCLUSIONS The left ventricular systolic function is mildly reduced with an estimated ejection fraction in the range of 45- 50%. There is global left ventricular dysfunction. Trace mitral valve regurgitation. There is trace tricuspid valve regurgitation. BP: / HR: Rhythm: MEASUREMENTS (Male / Female) Normal Values Technical Quality: 2D ECHO LV Diastolic Diameter PLAX 3.8 cm 4.2 - 5.9 / 3.9 - 5.3 cm LV Systolic Diameter PLAX 3.1 cm IVS Diastolic Thickness 0.7 cm 0.6 - 1.0 / 0.6 - 0.9 cm LVPW Diastolic Thickness 0.9 cm 0.6 - 1.0 / 0.6 - 0.9 cm LV Relative Wall Thickness 0.4 RV Internal Dim ED PLAX 2.7 cm LVOT Diameter 1.8 cm Aortic Root Diameter 2.2 cm LA Systolic Diameter LX 2.6 cm 3.0 - 4.0 / 2.7 - 3.8 cm M-MODE Aortic Root Diameter MM 3.7 cm LA Systolic Diameter MM 3.5 cm LA Ao Ratio MM 0.9 AV Cusp Separation MM 2.5 cm DOPPLER AV Peak Velocity 115.0 cm/s AV Peak Gradient 5.3 mmHg LVOT Peak Velocity 95.3 cm/s LVOT Peak Gradient 3.6 mmHg AV Area Cont Eq pk 2.1 cm Mitral E Point Velocity 53.3 cm/s Mitral A Point Velocity 52.8 cm/s Mitral E to A Ratio 1.0 LV E' Lateral Velocity 9.3 cm/s Mitral E to LV E' Lateral Ratio 5.8 LV E' Septal Velocity 7.4 cm/s Mitral E to LV E' Septal Ratio 7.2 TR Peak Velocity 254.0 cm/s TR Peak Gradient 25.8 mmHg Right Atrial Pressure 10.0 mmHg Pulmonary Artery Systolic Pressu 35.8 mmHg Right Ventricular Systolic Press 35.8 mmHg PV Peak Velocity 68.8 cm/s PV Peak Gradient 1.9 mmHg FINDINGS LEFT VENTRICLE Normal left ventricular size. Wall thickness is normal. The left ventricular systolic function is mildly reduced with an estimated ejection fraction in the range of 45- 50%. There is global left ventricular dysfunction. This study was not technically sufficient to allow for evaluation of left ventricular diastolic func tion. RIGHT VENTRICLE Grossly normal LEFT ATRIUM The left atrial size is normal. RIGHT ATRIUM The right atrial size is normal. ATRIAL SEPTUM Normal atrial septal thickness without atrial level shunting by limited color doppler interrogation. AORTA The aortic root and proximal ascending aorta are normal in size on limited imaging. MITRAL VALVE Mild thickening of the mitral valve leaflets. Thickened subvalvular mitral valve apparatus. Trace mitral valve regurgitation. No mitral valve stenosis. AORTIC VALVE The aortic valve is not well visualized. No aortic valve regurgitation. No aortic valve stenosis. TRICUSPID VALVE Grossly normal There is trace tricuspid valve regurgitation. No tricuspid valve stenosis. PULMONARY VALVE The pulmonary valve is not well visualized. PERICARDIUM No pericardial effusion. Shin Pagan DO (Electronically Signed) Final Date:05 November 2018 17:27
[2018-11-05 17:43] LABS: Creatine Kinase 73 U/L (26-192)
[2018-11-05] MEDS: Famotidine 20 MG Tablet PO SCH (20:37)
[2018-11-05] MEDS: traZODone 50 MG Tablet PO SCH (20:37)
[2018-11-05] MEDS: Melatonin 5 MG Tablet PO SCH (20:41)
[2018-11-06] MEDS: Gabapentin 100 MG Capsule PO SCH ×3 (08:13→17:09)
[2018-11-06] MEDS: Carbidopa/Levodopa CR 50/200 MG Tablet PO SCH ×3 (08:13→17:12)
[2018-11-06] MEDS: oxyCODONE HCL 20 MG Controlled Release Tablet PO SCH ×2 (08:13→20:48)
[2018-11-06] MEDS: Senna/Docusate Sodium 8.6/50 MG Tablet PO SCH ×2 (08:13→20:46)
[2018-11-06] MEDS: Polyethylene Glycol 3350 17 GM Packet PO SCH (08:13)
--- NOTE | 2018-11-06 12:47 | P.PNPSY ---
Subjective Chief Complaint: Follow-up for paranoid delusions Remarks: Patient seen for follow-up, chart reviewed, patient discussed with nursing staff ; we reviewed the patient's mood, thoughts, and behaviors from overnight and this morning. Nursing reports the patient has been up and out of her room intermittently throughout the day. She continues to complain of inadequate pain control despite the addition of her Roxicodone 10 mg every 8 hours. The patient has complained of worsening anxiety since being told she had abnormalities on her echocardiogram. Patient was seen at bed side today after lunch. She continues to complain of restless sleep and now reports "trazodone never worked for me because my pain always wakes me up." She was asked about taking an increased dose of gabapentin at bedtime but she reports that that failed to help her in the past as well. Patient became tearful discussing her anxiety about the uncertainty of her heart due to being told there is abnormalities on her echocardiogram. Patient expressed anxiety about whether she will be able to return return to her snf this weekend with plans of having [place] dinner with her family. She reports that the paranoid thoughts have remitted and feels safe in the hospital as well as safe with going back to her snf. She denies any worsening dystonia or tremors. She denies any auditory or visual hallucinations. She denies any homicidal or suicidal ideations. She was counseled on the risks of combining opiates and benzodiazepines and she expressed understanding that if she were to use those medications and doses in excess of her prescribed amounts he was at risk of but she would not accept the possibility that even at the prescribed amounts there was a risk of or worsening functioning levels. The patient was informed that the maximum recommended dose for Ativan chronic treatment of anxiety according to the FDA is 4 mg and even at this dose there is a likelihood of declining efficacy over time. Patient acknowledged this information but insists that she wants to return to her medication management through her outside providers in the snf. Mental Status Examination Appearance: Disheveled Consciousness: Alert, Somnolent Orientation: x4 Motor Activity: Other (Motor abnormalities as noted above) Speech: Unremarkable Language: Adequate Fund of Knowledge: Adequate Attention and Concentration: Adequate Memory: Unremarkable Mood: Anxious Affect: Anxious Thought Process & Associations: Logical, Goal directed Thought Content: Appropriate Hallucination Type: None Delusion Type: None Suicidal Ideation: No Suicidal Plan: No Suicidal Intention: No Homicidal Ideation: No Homicidal Plan: No Homicidal Intention: No Insight: Fair Judgment: Impulsive Assessment and Plan - Assessment (1) Unspecified psychosis Code(s): F29 - Unspecified psychosis not due to a substance or known physiological condition Status: Acute (2) Anxiety disorder, unspecified Code(s): F41.9 - Anxiety disorder, unspecified Status: Chronic - Plan Plan: 11/03/2018 initial assessment and plan: The patient is a 48-year-old female with a history of chronic mental illness as well as physical disabilities to include Parkinson's and dystonias, is admitted under a Brennan act order initiated by emergency department provider due to the patient's acute symptoms of psychosis leading to risks of self-harm through self neglect as evidenced by the patient's elopement from her assisted living facility and refusal to except help in association with paranoid delusions. The patient has thus far been uncooperative with efforts to evaluate per Brennan act protocol therefore she will require continued inpatient stabilization observation and evaluation in order to mitigate the risks of harm to self or others. Her outpatient treatment includes opioid and benzodiazepine treatments at high doses which placed her at high risk of from medication complications therefore her refusal to restart opioids on this admission is an opportunity to reduce these risks. The patient will be treated for opiate withdrawal as well as treatment of her benzodiazepine dependence by a slow taper. 1. Continue with admission to inpatient psychiatry at [facility]; involuntary/lacking capacity legal status. 2. Routine unit precautions. 3. Comfort medications ordered for as needed treatment of constipation, heartburn, diarrhea, and mild pain. 4. Medications reconciled and non-psychotropic home meds to be restarted. 5. The patient's Paxil and trazodone will be held until she is able to sign informed consents. 6. Benzodiazepine dependence will be treated with a slow taper; Ativan 2 mg every 8 hours scheduled with Ativan 1-2 mg every 4 hours as needed for CIWA scores greater than 8. 7. Patient is refusing opiate pain medication therefore opiate withdrawal symptoms will be treated with clonidine 0.1 mg every 4 hours as needed for withdrawal symptoms to include systolic blood pressure greater than 155, diastolic blood pressure greater than 95, heart rate greater than 100. 8. Patient will participate in the unit programming to include group therapies , milieu therapy and recreational therapies. 9. Hospitalist consulted for further evaluation and treatment of the patient's parkinsonism and chronic pain. 10. Psychiatry consulted for second opinion for Brennan act. 11. Continue to discuss with patient the risks, benefits, side effects and alternative treatments for her parkinsonism and the possibility of using an atypical antipsychotic to treat her psychosis. 12. Discharge planning: Anticipate need for patient to return to an assisted living facility versus specialized nursing facility. 11/04/2018: Fair initial response to treatment, the patient is less guarded and is now cooperating with the restart of her home medications. She seems to have tolerated the decreased dose of Sinemet as there is no evidence of worsening bradykinesia or dystonias. She is also tolerated the decrease dosing of her pain medications and is not asking for an increase. The patient is struggling to tolerate the decrease of her anxiolytic medication but has thus far accepted the plan for tapering. She continues to decline recommendations to start adjunctive treatment with an atypical antipsychotic for treatment of drug- induced psychosis, but her reasoning is rational therefore guardian advocate for medical decision making will not be pursued at this time. Continue current inpatient treatment plan and involuntary status with capacity for competent medical decision-making. Continue with Sinemet at a reduced dose of 3 times per day and observe for worsening dystonia or parkinsonism. Continue with reduced dose of Ativan 2 mg every 8 hours with adjunctive treatment for potential benzodiazepine withdrawal with seizure protocol and Ativan 1-2 mg every 4 hours as needed. The patient remains a high risk of complications from the combination of muscle relaxers sedative-hypnotics and pain relievers therefore it is recommended that her reduced dose of opiate be continued rather than increased back to previous outpatient doses. Continue to work on developing therapeutic trust and continue discussions of risks benefits side effects and alternative treatments of her anxiety psychosis and parkinsonism with the goal of restarting an atypical antipsychotic that should hopefully control the psychosis as well as help reduce complaints of anxiety and insomnia. Discharge planning: Unit social security benefits interviewer working with family and patient to find alternative assisted living facility. 11/05/2018: Good response to treatment, the patient is reporting a remission in the paranoid believes she had about being hurt in the hospital. She is now expressing insight that she needs inpatient stabilization prior to return being to assisted living facility. Her strength seems to have improved as evidenced by her ability to get up and out of bed by herself and use a wheelchair, and her eyelids are able to stay open during conversation. There is no evidence of worsening dystonia or EPS since her Sinemet was decreased. Patient seems satisfied with the current dosing of Ativan which was also decreased by mo Re than 50%. Continue inpatient stabilization and treatment and convert to voluntary status. The patient remains a high risk of complications from the combination of muscle relaxers sedative-hypnotics and pain relievers therefore it is recommended that her reduced dose of opiate be continued rather than increased back to previous outpatient doses. Continue to work on developing therapeutic trust and continue discussions of risks benefits side effects and alternative treatments of her anxiety psychosis and parkinsonism with the goal of restarting an atypical antipsychotic that should hopefully control the psychosis as well as help reduce complaints of anxiety and insomnia. Discharge planning: Unit social security benefits interviewer working with family and patient to find alternative assisted living facility. 11/06/2018: Good response to treatment, the patient's paranoid delusions have resolved and she has tolerated the reduced dose of Ativan and Sinemet. She is not satisfied with the reduced dose of oxycodone to treat her pain but vital signs remained stable and there is no evidence of opiate withdrawal. Patient's anxiety has been acutely worsened this morning due to uncertainty about her cardiac status which will need to be resolved prior to discharge back to snf. Continue inpatient stabilization and treatment ; voluntary status. The patient remains a high risk of complications from the combination of muscle relaxers sedative-hypnotics and pain relievers therefore it is recommended that her reduced dose of opiate be continued rather than increased back to previous outpatient doses. Discharge planning: Patient reportedly has been accepted back to her previous snf facility. Anticipate discharge tomorrow if cardiology clears patient for outpatient follow-up. Justification for Continued Inpatient Stay: Patient remains an elevated risk for self-harm by self neglect and will require further inpatient stabilization and preparation of a safe discharge plan. Moving patient to a less restrictive environment at this time may result in decompensation.
--- NOTE | 2018-11-06 14:58 | P.CONCA ---
History of Present Illness Service: cardiology Consult date: 11/06/18 Requesting Physician: Tye Hinton Reason for Consult: mild cardiomyopathy Primary Care Provider: UNKNOWN Chief Complaint: chest pain History of Present Illness: Patient is a 48-year-old lady with a Parkinson's, dystonia, chronic pain on opiate therapy, bipolar disorder, anxiety disorder, borderline personality disorder who presented for admission on 11/02/18 as she was brought in by her mother and stepfather for evaluation of worsening paranoia. Apparently the patient lives at a facility and left the facility on her own which was new. She did fall and hit her head a few days earlier. She was evaluated with CT brain and cervical spine. She has had left-sided anterior chest wall pain since the fall. Pain is described as worse with deep breath, laughing and reproducible to palpation. Internal medicine was consulted to manage her opiate therapy and obtained an echocardiogram to evaluate for cardiac contusion. Echocardiogram 11/05/18 revealed no cardiac contusion, mildly reduced LV systolic function, EF 45-50% but appears more like 50% by visual estimation. No significant valvular heart disease. Cardiology was consulted to evaluate for mild cardiomyopathy. Patient states that she has continued constant left-sided anterior chest pain, again described as worse with deep breaths and laughing as well as reproducible to palpation. She persistently rubs the site during our interview. No associated dyspnea. No prior anginal chest pain. No syncope. Review of Systems All other systems reviewed negative except as stated in HPI [facility] - History History Provided By: Patient - Medical History Medical History: Medical History (Last Reviewed 11/05/18 @ 08:06 by Mikhail Arita) Anxiety Bipolar II disorder Delusional disorder Dystonia GERD (gastroesophageal reflux disease) Hypertension Insomnia Parkinson disease Polyneuropathy Rhabdomyolysis Vitamin deficiency - Family History Family History: Family History Other Hypertension - Tobacco History Second Hand Smoke Exposure: Yes Tobacco Use In Past 30 Days: Yes Smoking Status: Refused to answer Tobacco Type: Cigarettes - Alcohol History How Often Do You Have a Drink Containing Alcohol: Unable to Obtain - Substance Use History Substance History: Unable to Obtain - Travel History Recent Travel in the [place] Within the Last 8 Weeks: No Recent Travel Out of the Country Within the Last 8 Weeks: No - Immunization History Tetanus Immunization: Unsure Hx Influenza Vaccine This Season: No Medications and Allergies Active Medications: Active Medications Al Hydrox/Mg Hydrox/Simethicone (Mag-Al Plus Susp Liq) 30 ml PO Q6H PRN PRN Reason: DYSPEPSIA Al Hydroxide/Mg Hydroxide (Milk Of Magnesia Liq) 30 ml PO Q12H PRN PRN Reason: Mild Constipation Baclofen (Lioresal) 20 mg PO Q8HR [facility] Last Admin: 11/06/18 13:11 Dose: 20 mg Bisacodyl (Dulcolax Supp) 10 mg RECTAL DAILY PRN PRN Reason: SEVERE CONSITIPATION Carbidopa/Levodopa (Sinemet Cr 50/200 Mg) 1 tab PO TID [facility] Last Admin: 11/06/18 13:07 Dose: 1 tab Clonidine HCl (Catapres) 0.1 mg PO Q6H PRN PRN Reason: SBP>180, DBP>95 Famotidine (Pepcid) 20 mg PO [facility] Last Admin: 11/05/18 20:37 Dose: 20 mg Flumazenil (Romazecon Inj) 0.2 mg IV.PUSH Q1M PRN PRN Reason: OVERSEDATION Gabapentin (Neurontin) 200 mg PO TID [facility] Last Admin: 11/06/18 13:07 Dose: 200 mg Lorazepam (Ativan) 1 mg PO Q4H PRN PRN Reason: for CIWA 8-10 Last Admin: 11/03/18 00:13 Dose: 1 mg Lorazepam (Ativan Inj) 2 mg IV.PUSH Q2H PRN PRN Reason: for CIWA 11-14 Lorazepam (Ativan Inj) 2 mg IV.PUSH Q1H PRN PRN Reason: for CIWA 15-20 Lorazepam (Ativan Inj) 2 mg IV.PUSH Q15M PRN PRN Reason: for CIWA > 20 Lorazepam (Ativan Inj) 1 mg IV.PUSH Q4H PRN PRN Reason: for CIWA 8-10 Lorazepam (Ativan) 2 mg PO Q8H [facility] Last Admin: 11/06/18 13:07 Dose: 2 mg Lorazepam (Ativan) 2 mg PO Q4H PRN PRN Reason: for CIWA 11-14 Melatonin (Melatonin) 5 mg PO [facility] Last Admin: 11/05/18 20:41 Dose: 5 mg Miscellaneous (Pill Splitter) 1 each OTHER UNSCH PRN PRN Reason: SEE LABEL COMMENTS Naloxone HCl (Narcan Inj) 0.4 mg IV.PUSH ONCE PRN PRN Reason: SEDATION Nicotine (Habitrol 21 Mg Patch.24 Hr) 1 patch T-DERMAL DAILY [facility] Last Admin: 11/06/18 08:12 Dose: 1 patch Ondansetron HCl (Zofran Odt) 4 mg PO Q4H PRN PRN Reason: NAUSEA Oxycodone HCl (Oxycontin Cr) 20 mg PO Q12HR [facility] Last Admin: 11/06/18 08:13 Dose: 20 mg Oxycodone HCl (Roxicodone) 10 mg PO Q8H PRN PRN Reason: BREAKTHROUGH PAIN Last Admin: 11/05/18 17:36 Dose: 10 mg Paroxetine HCl (Paxil) 30 mg PO HS [facility] Last Admin: 11/05/18 20:36 Dose: 30 mg Polyethylene Glycol (Miralax) 17 gm PO DAILY [facility] Last Admin: 11/06/18 08:13 Dose: 17 gm Senna/Docusate Sodium (Maye-Colace) 1 tab PO BID [facility] Last Admin: 11/06/18 08:13 Dose: 1 tab Sennosides (Senokot) 17.2 mg PO Q12H PRN PRN Reason: Moderate Constipation Tizanidine HCl (Zanaflex) 2 mg PO TID [facility] Last Admin: 11/06/18 13:07 Dose: 2 mg Trazodone HCl (Desyrel) 200 mg PO [facility] Last Admin: 11/05/18 20:37 Dose: 200 mg Trihexyphenidyl HCl (Artane) 2 mg PO TID [facility] Last Admin: 11/06/18 13:07 Dose: 2 mg Allergies Allergy/AdvReac Type Severity Reaction Status Date / Time diclofenac AdvReac Ulcers Verified 11/02/18 10:44 etodolac AdvReac Ulcers Verified 11/02/18 10:44 flurbiprofen AdvReac Ulcers Verified 11/02/18 10:44 ibuprofen AdvReac Ulcers Verified 11/02/18 10:44 indomethacin AdvReac Ulcers Verified 11/02/18 10:44 Home Medications Medication Instructions Recorded Confirmed Type Citroma 11/02/18 11/02/18 History Dulcolax Stool Softener (dss) 11/02/18 History Paxil 11/02/18 11/02/18 History baclofen 20 mg PO QID 11/02/18 11/02/18 History baclofen 20 mg PO QID 11/02/18 11/02/18 History carbidopa-levodopa [Sinemet CR] 1 tab PO Q8H 11/02/18 11/02/18 History famotidine [Pepcid] 20 mg PO DAILY 11/02/18 11/02/18 History gabapentin See Label Instructions .ROUTE 11/02/18 11/02/18 History .COMPLEX lorazepam [Ativan] 2 11/02/18 History magnesium hydroxide [Milk of 15 ml PO DAILY PRN 11/02/18 11/02/18 History Magnesia] melatonin 11/02/18 History oxycodone [OxyContin] 11/02/18 11/02/18 History tizanidine 2 mg PO TID PRN 11/02/18 11/02/18 History trazodone 11/02/18 History Exam Vital signs: Vital Signs 11/05/18 18:00 11/06/18 05:55 Temperature 98 F 97.9 F Pulse Rate 67 76 Respiratory Rate 16 16 Blood Pressure 130/77 120/74 Pulse Oximetry 97 93 L Intake & Output 11/05/18 11/06/18 11/06/18 18:59 06:59 18:59 Intake Total 840 / 840 0 / 0 Balance 840 / 840 0 / 0 Intake: Oral 840 / 840 0 / 0 Other: # Voids 3 0 Narrative: GENERAL: AAO x3, stereotypical movements with torticollis. poor eye contact with conversation SKIN: Warm and dry. HEAD: Atraumatic. Normocephalic. NECK: Trachea midline. No JVD. CARDIOVASCULAR: Regular rate and rhythm. Chest tender to palpation in the left anterior lateral chest wall overlying the upper portion of her breast. RESPIRATORY: No accessory muscle use. Clear to auscultation. Breath sounds equal bilaterally. GASTROINTESTINAL: Abdomen soft, non-tender, nondistended. Hepatic and splenic margins not palpable. MUSCULOSKELETAL: Extremities without clubbing, cyanosis, or edema. No obvious deformities. Results 11/04/18 07:06 11/05/18 09:42 Cardiac Enzymes 11/05/18 Range/Units 16:22 Troponin I Less than 0.02 L (0.02-0.05) ng/mL Comprehensive Metabolic Panel 12/19/18 Range/Units 09:42 Sodium 140 (136-145) meq/L Potassium 3.9 (3.5-5.1) meq/L Chloride 107 (98-107) meq/L Carbon Dioxide 27.4 (21.0-32.0) meq/L BUN 8 (7-18) mg/dL Creatinine 0.60 (0.50-1.00) mg/dL Calcium 8.1 L (8.5-10.1) mg/dL Intake and Output 11/05/18 11/06/18 11/06/18 22:59 06:59 14:59 Intake Total 720 / 720 0 / 0 Balance 720 / 720 0 / 0 Intake: Oral 720 / 720 0 / 0 Other: # Voids 3 0 - Imaging and Cardiology Imaging: Impressions Ribs X-Ray 11/04/18 00:00 CONCLUSION: Negative exam with no visualized fracture. Assessment and Plan - Plan Assessment: Mild cardiomyopathy, LVEF 45-50% but appears 50% by visual estimation. She has no regional wall motion abnormalities apparent on echocardiogram which I reviewed independently. Her EKG is normal and with no ischemic changes. Etiology of mild cardiomyopathy may be stress-induced however ischemia evaluation would not be an appropriate. Will order Lexiscan stress test to be completed tomorrow morning although I suspect they will likely be normal. If no ischemic findings, no pharmacotherapy required. QTC on recent EKG is normal with her current medications though should be monitored if those adjustments are made. Will defer to psychiatry. We will sign off for now. Please contact if there is abnormality with her Lexiscan stress test for further recommendations.
[2018-11-06 17:20] VITALS: O2SAT 94
--- NOTE | 2018-11-06 17:58 | P.PNIM ---
Subjective Interval history: Follow up on patient with Parkinson's, dystonia, chronic pain , bipolar disorder. Patient seen and examined. Patient complaining of pain. She says she was unable to get any sleep last night. She does not know what pain medications she takes at home. She is not sure if she takes oxycodone or OxyContin and she is not sure of the dosage. She also states she is on baclofen but does not know the dose. She is complaining of chest pain exacerbated by inspiration. She denies any associated palpitations, diaphoresis , lightheadedness/dizziness, numbness/tingling, nausea/vomiting, abdominal pain or shortness of breath. Physical Exam Vital signs: Last Vital Signs Temp 99 F 11/06/18 17:17 Pulse 95 H 11/06/18 17:17 Resp 18 11/06/18 17:17 BP 143/81 H 11/06/18 17:17 Pulse Ox 94 L 11/06/18 17:17 Intake & Output 11/04/18 11/05/18 11/06/18 11/07/18 06:59 06:59 06:59 06:59 Intake Total 0 / 0 1320 / 1320 840 / 840 1080 / 1080 Balance 0 / 0 1320 / 1320 840 / 840 1080 / 1080 Narrative: GENERAL: Well developed thin, generally weak, deconditioned from Parkinson's, female, INAD. Awake and alert. +Restless in bed with movements typical with dystonia/torticollis. SKIN: Warm and dry. No generalized rash. +small laceration repair over left forehead/temporal area, sutures in place, appears to be healing well. HEENT: Normocephalic. Pupils equal, round, reactive to light. No scleral icterus. No injection or drainage. No nasal bleeding or discharge. Moist mucous membranes. NECK: Trachea midline. +cervical dystonia. CARDIOVASCULAR: Tachycardia. No murmur, no gallops, no rubs. Anterior chest wall tender to palpation. RESPIRATORY: Clear and equal to auscultation bilaterally. No crackles, no wheezes. No accessory muscle use. GASTROINTESTINAL: Abdomen soft, non-tender, nondistended, normal active bowel sounds. MUSCULOSKELETAL: No edema noted. Moderate increased muscle tone of right sternocleidomastoid and right neck musculature. +tenderness to palpation over left rib cage. Skin intact, no rash noted. No ecchymosis. NEUROLOGICAL: Awake and alert. No obvious cranial nerve deficits. Motor grossly within normal limits, no resting tremor currently. Normal speech. PSYCHIATRIC: Calm and cooperative. Results Labs CBC & Chem 7: 11/04/18 07:06 11/05/18 09:42 Assessment and Plan (1) Unspecified psychosis: Code(s): F29 - Unspecified psychosis not due to a substance or known physiological condition Status: Acute (2) Anxiety disorder, unspecified: Code(s): F41.9 - Anxiety disorder, unspecified Status: Chronic Plan 48-year-old female with a history of Parkinson's, dystonia, chronic pain admitted to med psych for complication needs of bipolar disorder. Bipolar disorder with anxiety Borderline personality disorder Delusional disorder UDS neg TSH WNL -management per psychiatry Chronic pain Cervical dystonia Parkinson's Eforsce verified narcotic prescriptions -patient takes combination of oxycodone 20 mg 6 tabs/day and OxyContin 30 mg 1 tab BID Lengthy discussion with patient at the bedside today. She is unclear as to medications that she takes at home and the dosages. Discussed with LENO Tillman and request that he update patient's medication reconciliation -Started on 20 mg of OxyContin every 12 hours and Oxycodone 10mg q8h prn breakthrough pain, continue -patient on Baclofen, Ativan, Gabapentin, Zanaflex -continue on Sinemet -Narcan ordered as PRN option in case oversedation occurs -continue with PT/OT Left sided rib pain s/p fall -xray neg for acute fracture Episodes of hypertension and tachycardia possibly related to left sided chest/rib pain and/or anxiety no reported hx of HTN -clonidine prn with parameters -continue to monitor BP and will initiate scheduled antihypertensive treatment if indicated Chest pain, atypical reproducible on exam, suspect MSK etiology -EKG without acute ischemic changes, troponin negative -echocardiogram done revealing mildly reduced EF of 45-50%, global left ventricular dysfunction. Will consult Cardiology, appreciate assistance. -monitor Hypokalemia -resolved s/p repletion DVT prophylaxis -patient is ambulatory Progress Note: Quality VTE Deep Vein Thrombosis/Pulmonary Embolism Present on Admission: No _ (1) Unspecified psychosis Qualifiers: Psychosis type: Schizoaffective disorder type: Schizophrenia type: (2) Anxiety disorder, unspecified Qualifiers: Anxiety disorder type: Phobia type:
[2018-11-06] MEDS: Melatonin 5 MG Tablet PO SCH (20:46)
[2018-11-06] MEDS: Famotidine 20 MG Tablet PO SCH (20:47)
[2018-11-06] MEDS: traZODone 50 MG Tablet PO SCH (20:49)
[2018-11-07 06:07] VITALS: BP 114/84; PULSE 69; RESP 16; TEMP 98.7
[2018-11-07] MEDS: Gabapentin 100 MG Capsule PO SCH ×2 (08:14→13:51)
[2018-11-07] MEDS: Carbidopa/Levodopa CR 50/200 MG Tablet PO SCH ×2 (08:15→13:51)
[2018-11-07] MEDS: Senna/Docusate Sodium 8.6/50 MG Tablet PO SCH (08:15)
[2018-11-07] MEDS: oxyCODONE HCL 20 MG Controlled Release Tablet PO SCH (08:15)
[2018-11-07] MEDS: Polyethylene Glycol 3350 17 GM Packet PO SCH (10:04)
--- NOTE | 2018-11-07 11:17 | P.PNIM ---
Subjective Interval history: Follow up on patient with Parkinson's, dystonia, chronic pain , bipolar disorder. Patient seen and examined. Patient says she wants to go home. She does not verbalize any complaints of pain at this time. She is NPO for Lexiscan scheduled for later this morning. [facility] nursing staff, no adverse events noted overnight. Physical Exam Vital signs: Last Vital Signs Temp 98.7 F 11/07/18 06:00 Pulse 69 11/07/18 06:00 Resp 16 11/07/18 06:00 BP 114/84 11/07/18 06:00 Pulse Ox 94 L 11/07/18 06:00 Intake & Output 11/05/18 11/06/18 11/07/18 11/08/18 06:59 06:59 06:59 06:59 Intake Total 1320 / 1320 840 / 840 1800 / 1800 Balance 1320 / 1320 840 / 840 1800 / 1800 Narrative: GENERAL: Well developed thin, generally weak, deconditioned from Parkinson's, female, INAD. Awake and alert. SKIN: Warm and dry. No generalized rash. +small laceration repair over left forehead/temporal area, sutures in place, appears to be healing well. HEENT: Normocephalic. Pupils equal, round, reactive to light. No scleral icterus. No injection or drainage. No nasal bleeding or discharge. Moist mucous membranes. NECK: Trachea midline. +cervical dystonia. CARDIOVASCULAR: Regular rate and rhythm. No murmur, no gallops, no rubs. Anterior chest wall tender to palpation. RESPIRATORY: Clear and equal to auscultation bilaterally. No crackles, no wheezes. No accessory muscle use. GASTROINTESTINAL: Abdomen soft, non-tender, nondistended, normal active bowel sounds. MUSCULOSKELETAL: No edema noted. Moderate increased muscle tone of right sternocleidomastoid and right neck musculature. +tenderness to palpation over left rib cage. Skin intact, no rash noted. No ecchymosis. NEUROLOGICAL: Awake and alert. No obvious cranial nerve deficits. Motor grossly within normal limits, no resting tremor currently. Normal speech. PSYCHIATRIC: Calm and cooperative. Results Labs CBC & Chem 7: 11/04/18 07:06 11/05/18 09:42 Assessment and Plan (1) Unspecified psychosis: Code(s): F29 - Unspecified psychosis not due to a substance or known physiological condition Status: Acute (2) Anxiety disorder, unspecified: Code(s): F41.9 - Anxiety disorder, unspecified Status: Chronic Plan 48-year-old female with a history of Parkinson's, dystonia, chronic pain admitted to med psych for complication needs of bipolar disorder. Bipolar disorder with anxiety Borderline personality disorder Delusional disorder UDS neg TSH WNL -management per psychiatry Chronic pain Cervical dystonia Parkinson's Eforsce verified narcotic prescriptions -patient takes combination of oxycodone 20 mg 6 tabs/day and OxyContin 30 mg 1 tab BID Lengthy discussion with patient at the bedside today. She is unclear as to medications that she takes at home and the dosages. Discussed with LENO Tillman and request that he update patient's medication reconciliation -Started on 20 mg of OxyContin every 12 hours and Oxycodone 10mg q8h prn breakthrough pain. Psychiatry recommends keeping patient at her current dose of pain medications due to high risk of complications and I concur. -patient on Baclofen, Ativan, Gabapentin, Zanaflex -continue on Sinemet -Narcan ordered as PRN option in case oversedation occurs -continue with PT/OT Left sided rib pain s/p fall -xray neg for acute fracture Episodes of hypertension and tachycardia possibly related to left sided chest/rib pain and/or anxiety no reported hx of HTN 11/07 patient is currenty normotensive and nontachycardic -clonidine prn with parameters -continue to monitor BP and will initiate scheduled antihypertensive treatment if indicated Chest pain, atypical reproducible on exam, suspect MSK etiology -EKG without acute ischemic changes, troponin negative -echocardiogram done revealing mildly reduced EF of 45-50%, global left ventricular dysfunction. -Evaluated by cardiology, appreciate assistance. Lexiscan ordered for this morning. Keep NPO for now. If neg, patient cleared from cardiology standpoint to be discharged. -monitor Hypokalemia -resolved s/p repletion DVT prophylaxis -patient is ambulatory Patient appears stable from hospitalist standpoint. If Lexiscan negative, patient cleared to be discharged back to [facility] facility. [facility] will sign off. Please reconsult if needed. Progress Note: Quality VTE Deep Vein Thrombosis/Pulmonary Embolism Present on Admission: No _ (1) Anxiety disorder, unspecified Qualifiers: Anxiety disorder type: Phobia type: (2) Unspecified psychosis Qualifiers: Psychosis type: Schizoaffective disorder type: Schizophrenia type:
--- NOTE | 2018-11-07 11:51 | ECG ---
Date Performed: 11/05/2018 Time Performed: 14:06:47 PTAGE: 48 years EKG: Sinus rhythm POSSIBLE LEFT ATRIAL ENLARGEMENT BORDERLINE ECG PREVIOUS TRACING : 12/31/2016 09.18 DOCTOR: Brenton Garibay Interpretating Date/Time 11/07/2018 11:49:08
[2018-11-07] MEDS ORDERED: Regadenoson Inj 0.4 MG/5 ML Syringe IV.PUSH ONE (12:42)
--- NOTE | 2018-11-07 13:28 | NM ---
EXAM DATE: 11/07/2018 1:21 PM EST AGE/SEX: 48 years / Female INDICATIONS:Angina. Abnormal EKG Chest pain. CLINICAL DATA: This is the patient's initial encounter. Patient reports that signs and symptoms have been present for 1 day and indicates a pain score of 1/10. MEDICAL/SURGICAL HISTORY: Hypertension. Parkinson's disease. None. COMPARISON: No prior exams available for comparison. DOSE: 8.3 mCi Tc 99m Myoview at rest 25.2 mCi [id number] at stress 0.4 mg Lexiscan STRESS SYMPTOMS: Dizziness. EJECTION FRACTION: 70 % TECHNIQUE: The patient underwent pharmacologic stress with infusion of prescribed dose. Continuous ECG tracing was monitored during stress. Gated SPECT imaging was performed after stress and conventi onal SPECT imaging was performed at rest. The examination was performed on a SPECT/CT scanner, both attenuation and non-corrected datasets were reviewed. FINDINGS: Distribution: The maximum perfused segment at stress is in the septal wall. Perfusion Study: The pattern of perfusion at stress is within normal limits. Gated Study: There are intact wall motion and wall thickening without hypokinetic or dyskinetic segm ents. The ejection fraction is calculated at 70%. RISK CATEGORY: Low (<1% Annual Motality Rate) CONCLUSION: 1. Negative examination. Electronically signed by: Onel Sanchez MD Board Certified Radiologist 11/07/2018 1:27 PM EST
--- NOTE | 2018-11-07 14:44 | P.DSPSY ---
Psychiatry Discharge Summary Inpatient Psychiatric care?: Yes Advance Directives: Unknown Reason for Unknown:: Other Other Reason for Unknown: states she does not know if she has one. 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 Pt lives at a facility and this morning left the facility on her own and was found at a local mall, increase in paranoid statements indicating she believes that there are people at her home that are watching her, increase in auditory hallucinations. She did fall and hit her head 2 days ago. She was evaluated here and had CT brain, CT cervical spine completed and sutures repaired. Patient was last psychiatrically admitted here to [facility] in June 2017. Patient is seen. Case discussed with her mother and stepfather at bedside.Patient placed under a BA. Patient is alert, oriented female who appears older than stated age. She has cervical dystonia. She is guarded in her responses. She tells me "I tried to escape. My parents think I am having delusions. I am hearing things that are so crazy". She admits to increase in auditory hallucinations for the past 2 days but would not disclose the content to this headline writer. She asked RN " how is he would be to kill someone?". The psychiatric review of system is limited due to patient's current mental status. The patient was seen at bedside on the inpatient medical psych unit today; the patient's mother and maternal aunt were at her bedside and she initially protested efforts to speak with her alone for the psychiatric interview. Patient was uncooperative with psychiatric interview and remained discharge focus, "I want you to discharge me I should not be Brennan acted". Patient was asked if she feels safe to return to her [facility] and she reports "no I won't be going back there." The patient was evasive to questions about her recent elopement from the facility. Attempts were made to normalize the patient's recent reported paranoia as a possible side effect from her treatment with Sinemet but the patient rejected this idea and insists that she has been on Sinemet "a long time and it is finally helping me." Medication reconciliation was discussed with the patient and she confirmed the home medications as listed but she refused to sign informed consent for her psychotropics, "I do not trust the medications you will give me." The patient also refused to restart he oxycodone pain medication despite warnings that this could bring on opiate withdrawal. The patient did acknowledge the need to restart her treatment with Ativan. The patient was asked for permission to invite her mother back into the room to continue the psychiatric interview but she declined at this time. The patient appeared very uncomfortable and distressed therefore it was agreed upon that this psychiatric interview would be completed at a later time. Past psychiatric history: Past Diagnoses: Medical records indicate that the patient has been diagnosed with anxiety, bipolar 2, delusional disorder, and borderline personality disorder. Hospitalizations: The patient reportedly has multiple admissions to [facility] the most recent being in June 2017. Those past records are currently unavailable. Suicidal behavior: Patient reportedly has a history of self-injurious behaviors but patient refused to discuss. Past psychotropic medication trials: Patient refused to discuss Outpatient MH treatment: Patient refused to discuss Substance Use Treatment: Patient refused to discuss Abuse/assault history: Patient refused to discuss Family psychiatric history: Patient refused to discuss Psychosocial history: Patient currently living in an assisted living facility. She has primary support from her mother and stepfather who also lives in the local area. The patient is on disability and in receives benefits from Medicare and Medicaid. Tobacco Use In Past 30 Days: Yes How Often Do You Have a Drink Containing Alcohol: Never Hospital Course: 11/03/2018. Initial assessment and plan: The patient is a 48-year-old female with a history of chronic mental illness as well as physical disabilities to include Parkinson's and dystonias, is admitted under a Brennan act order initiated by emergency department provider due to the patient's acute symptoms of psychosis leading to risks of self-harm through self neglect as evidenced by the patient's elopement from her assisted living facility and refusal to except help in association with paranoid delusions. The patient has thus far been uncooperative with efforts to evaluate per Brennan act protocol therefore she will require continued inpatient stabilization observation and evaluation in order to mitigate the risks of harm to self or others. Her outpatient treatment includes opioid and benzodiazepine treatments at high doses which placed her at high risk of from medication complications therefore her refusal to restart opioids on this admission is an opportunity to reduce these risks. The patient will be treated for opiate withdrawal as well as treatment of her benzodiazepine dependence by a slow taper. 1. Continue with admission to inpatient psychiatry at [facility]; involuntary/lacking capacity legal status. 2. Routine unit precautions. 3. Comfort medications ordered for as needed treatment of constipation, heartburn, diarrhea, and mild pain. 4. Medications reconciled and non-psychotropic home meds to be restarted. 5. The patient's Paxil and trazodone will be held until she is able to sign informed consents. 6. Benzodiazepine dependence will be treated with a slow taper; Ativan 2 mg every 8 hours scheduled with Ativan 1-2 mg every 4 hours as needed for CIWA scores greater than 8. 7. Patient is refusing opiate pain medication therefore opiate withdrawal symptoms will be treated with clonidine 0.1 mg every 4 hours as needed for withdrawal symptoms to include systolic blood pressure greater than 155, diastolic blood pressure greater than 95, heart rate greater than 100. 8. Patient will participate in the unit programming to include group therapies , milieu therapy and recreational therapies. 9. Hospitalist consulted for further evaluation and treatment of the patient's parkinsonism and chronic pain. 10. Psychiatry consulted for second opinion for Brennan act. 11. Continue to discuss with patient the risks, benefits, side effects and alternative treatments for her parkinsonism and the possibility of using an atypical antipsychotic to treat her psychosis. 12. Discharge planning: Anticipate need for patient to return to an assisted living facility versus specialized nursing facility. Hospital course: Patient was admitted to a locked, inpatient medical/ psychiatric unit. She was converted to voluntary status by hospital day 3. Appropriate precautions were in place throughout patient's hospital stay. Patient was seen and examined daily on the unit by psychiatry and also visited by counselor. Psychotropic medications were adjusted: her regular outpatient dose of Paxil 30 mg at bedtime was restarted, trazodone was increased to 200 mg at bedtime as needed for insomnia with good effect, her Sinemet was decreased from 4 times a day to 3 times a day with good effect, her Ativan was decreased from up to 12 mg a day as needed down to 8 mg every 8 hours with good effect, her OxyContin was decreased from 30 mg twice a day for the extended release plus Roxicodone 10 mg every 6 hours as needed for pain down to OxyContin 20 mg twice a day with her oxycodone 10 mg every 8 hours as needed for pain with satisfactory response. There was a good response to treatment noted by nursing and provider observations, and the patient reported remission of her paranoia and returned to baseline levels for her mood, pain, and anxiety. There was no evidence of any suicidality or homicidality at time of discharge. Psychiatric follow-up as arranged by counselor. Patient is also to follow up with primary care. I have counseled the patient as to the risks of combining opiates and benzodiazepines as well as educated her on FDA approved dosing levels for Ativan and recommended that she continue her efforts to decrease her doses with her outpatient psychiatrist. I have counseled patient to return to the psychiatric emergency room for any concerning symptoms as part of a general safety plan. 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 Code(s): F19.988 - Other psychoactive substance use, unspecified with other psychoactive substance-induced disorder; F09 - Unspecified mental disorder due to known physiological condition Status: Resolved Discharge Disposition: [facility] Facility - Discharge Instructions Discharge Diet: Regular Diet Activities You Can Perform: Regular- No Restrictions - Discharge Time > 30 minutes Mental Status Examination Appearance: Appropriate Consciousness: Alert, Somnolent Orientation: x4 Motor Activity: Other (Motor abnormalities as noted above) Speech: Unremarkable Language: Adequate Fund of Knowledge: Adequate Attention and Concentration: Adequate Memory: Unremarkable Mood: Anxious Affect: Anxious Thought Process & Associations: Logical, Goal directed Thought Content: Appropriate Hallucination Type: None Delusion Type: None Suicidal Ideation: No Suicidal Plan: No Suicidal Intention: No Homicidal Ideation: No Homicidal Plan: No Homicidal Intention: No Insight: Fair Judgment: Impulsive Discharge/Advance Care Plan - Results Vital Signs: Last Vital Signs Temp 98.7 F 11/07/18 06:00 Pulse 69 11/07/18 06:00 Resp 16 11/07/18 06:00 BP 114/84 11/07/18 06:00 Pulse Ox 94 L 11/07/18 06:00 Lab Results: Laboratory Results Hemoglobin A1c 5.2 % (4.3-6.0) 11/03/18 08:19 Triglycerides 61 mg/dL (42-150) 11/03/18 08:19 Cholesterol 126 mg/dL (120-200) 11/03/18 08:19 LDL Cholesterol, Calc 79 mg/dL (0-99) 11/03/18 08:19 HDL Cholesterol 34.4 mg/dL (40.0-60.0) L 11/03/18 08:19 TSH 1.220 uIU/mL (0.358-3.740) 11/02/18 10:40 Urine Culture Comments Culture not ind 11/02/18 12:35 Summary of Procedures: None ordered by psychiatry. The patient did have a cardiac stress test. Initial reports are negative. See cardiology report summary for details. Imaging: ITS Impressions Ribs X-Ray 11/04/18 00:00 CONCLUSION: Negative exam with no visualized fracture. Myocardial Perfusion Scan Nuc Med 11/07/18 00:00 CONCLUSION: 1. Negative examination. Pending Results: None - Medications Number of antipsychotic medications at discharge: 0 - Discharge Care Plan Goals to Promote Your Health: * To prevent worsening of your condition and complications * To maintain your health at the optimal level Directions to Meet Your Goals: Take your medications as prescribed Follow your dietary instruction Follow activity as directed Keep your appointments as scheduled Take your immunizations and boosters as scheduled If your symptoms worsen call your PCP, if no PCP go to Urgent Care Center or Emergency Room For 10/06 questions related to your inpatient stay or results of tests pending at discharge, please contact Dr. Tye Hinton MD at Smoking is Dangerous to Your Health. Avoid second hand smoking (1) Bipolar disorder Qualifiers: Current bipolar episode type: mixed Psychotic features: with psychotic features (2) Parkinsonism Qualifiers: Parkinsonism type: unspecified Qualified Code(s): G20 - Parkinson's disease (3) Chronic pain Qualifiers: Chronic pain type: chronic pain syndrome Qualified Code(s): G89.4 - Chronic pain syndrome (1) Bipolar disorder Qualifiers: Current bipolar episode type: mixed Psychotic features: with psychotic features (2) Parkinsonism Qualifiers: Parkinsonism type: unspecified Qualified Code(s): G20 - Parkinson's disease (3) Chronic pain Qualifiers: Chronic pain type: chronic pain syndrome Qualified Code(s): G89.4 - Chronic pain syndrome
== END 2018-11-07 18:10 ==
LOC: NEPD 09:57 → H4EA 13:32 → NEDA 13:34 → H4EA 13:52
PROVIDERS: ADMIT Psychiatry & Neurology Psychiatry; ATTEND Psychiatry & Neurology Psychiatry
DX: F31.81 Bipolar II disorder; G89.4 Chronic pain syndrome; W19.XXXA Unspecified fall, initial encounter; I10 Essential (primary) hypertension; G21.9 Secondary parkinsonism, unspecified; F60.3 Borderline personality disorder; R07.89 Other chest pain; E87.6 Hypokalemia; E56.9 Vitamin deficiency, unspecified; F11.23 Opioid dependence with withdrawal; G47.00 Insomnia, unspecified; M43.6 Torticollis; F19.988 Other psychoactive substance use, unspecified with other psychoactive substance-induced disorder; Z82.49 Family history of ischemic heart disease and other diseases of the circulatory system; K21.9 Gastro-esophageal reflux disease without esophagitis; I42.9 Cardiomyopathy, unspecified; F41.0 Panic disorder [episodic paroxysmal anxiety]; G24.9 Dystonia, unspecified; F13.239 Sedative, hypnotic or anxiolytic dependence with withdrawal, unspecified; F09 Unspecified mental disorder due to known physiological condition; G62.9 Polyneuropathy, unspecified